=== PATIENT | female | born 1980 | race Caucasian/White ===

== ENCOUNTER → 2016-08-17 | Outpatient (CLI) | payer MEDICAID ==
[2016-08-17 11:30] LABS: CHLORIDE,CL 107 mmol/L (98-110); SODIUM,NA 138 mmol/L (136-146)
== END ==
LOC: MW.CHFP 10:41
PROVIDERS: ATTEND Student in an Organized Health Care Education/Training Program
DX: R19.7 Diarrhea, unspecified (principal); R11.10 Vomiting, unspecified; R10.9 Unspecified abdominal pain; K30 Functional dyspepsia
CPT/HCPCS: 36415; 80048; 85025

== ENCOUNTER → 2016-08-18 | Outpatient (CLI) | payer MEDICAID | LOC: MW.CHFP 11:20 | PROVIDERS: ATTEND Student in an Organized Health Care Education/Training Program | DX: K30 Functional dyspepsia (principal); R10.9 Unspecified abdominal pain; R19.7 Diarrhea, unspecified | CPT/HCPCS: 83630; 87046; 87324; 87899 ==

== ENCOUNTER → 2016-08-25 | Outpatient (CLI) | payer MEDICAID ==
--- NOTE | 2016-08-25 14:00 | NM ---
EXAMINATION: Nuclear medicine hepatobiliary study (HIDA) with cholecystokinin (calculation of gallbl adder ejection fraction for function). HISTORY: Diarrhea, pain. PROCEDURE: Following intravenous administration of 3.8 mCi of technetium 99m Choletec, dynamic images were ob tained up to one-hour post injection. This is followed by slow intravenous administration of 1.3 mcg of CCK and additional dynamic images were obtained. Gallbladder ejection fraction is calculated. FINDINGS: The initial dynamic images demonstrates clearance of the tracer from the blood pool with the prompt tracer uptake by the liver. By 15 minutes tracer activity is noted in the gallbladder. The post CCK images demonstrates optimal contraction of the gallbladder with ejection fraction of 44 percent (nor mal is equal or more than 35%). Tracer activity is noted in the small intestine following CCK admini stration. IMPRESSION: 1. Patent cystic and common bile ducts. Normal liver function. 2. Normal gallbladder ejection fraction following CCK administration ( 44 %; normal equal or more t yuan 35%).
--- NOTE | 2016-08-25 15:41 | US ---
EXAMINATION: Right upper quadrant ultrasound HISTORY: Pain COMPARISON: CT dated 03/04/2015 TECHNIQUE: Grayscale and color Doppler images obtained of the right upper quadrant FINDINGS: The visualized pancreas appears normal. The liver appears normal in contour and echogenici ty without a focal hepatic mass. The gallbladder wall thickness is normal. No pericholecystic fluid or shadowing gallstones. The common bile duct measures 3 mm. The right kidney measures 10.1 cm pole- to-pole without evidence of hydronephrosis. The sonographic Mccall sign is negative. IMPRESSION: Unremarkable right upper quadrant ultrasound.
== END ==
LOC: MW.US 11:17
PROVIDERS: ATTEND Student in an Organized Health Care Education/Training Program
DX: R10.9 Unspecified abdominal pain (principal); R19.7 Diarrhea, unspecified; K90.49 Malabsorption due to intolerance, not elsewhere classified
CPT/HCPCS: 76705; 78227; A9500; J2805

== ENCOUNTER 2016-09-21 12:52 | Emergency (ER) | payer MEDICAID ==
[2016-09-21] MEDS ORDERED: Sodium Chloride 0.9% 1,000 ML IV ONE (13:19)
--- NOTE | 2016-09-21 13:32 | EDM.PDOC ---
ED HPI GENERAL MEDICAL PROBLEM - General Chief Complaint: Drug or Alcohol Abuse Stated Complaint: ALCOHOL ISSUES Time Seen by Provider: 09/21/16 13:24 Source of Information: Reports: Patient, Family History Limitations: Reports: No Limitations - History of Present Illness INITIAL COMMENTS - FREE TEXT/NARRATIVE: History of present illness: [36-year-old female coming in stating she needs inpatient alcohol rehabilitation. Patient indicates she has been doing outpatient and that is not meeting her needs of support to maintain a sober state. Patient is quite distraught, crying loudly and shouting repeatedly that she wants everybody to treat her poorly that she is not worthy of care or concern.] Review of systems: As per history of present illness and below otherwise all systems reviewed and negative. Past medical history: As per history of present illness and as reviewed below otherwise noncontributory. Surgical history: As per history of present illness and as reviewed below otherwise noncontributory. Social history: No reported history of drug or alcohol abuse. Family history: As per history of present illness and as reviewed below otherwise noncontributory. Physical exam: HEENT: Atraumatic, normocephalic, pupils reactive, negative for conjunctival pallor or scleral icterus, mucous membranes moist, throat clear, neck supple, nontender, trachea midline. Lungs: Clear to auscultation, breath sounds equal bilaterally, chest nontender. Heart: S1S2, regular, negative for clicks, rubs, or JVD. Abdomen: Soft, nondistended, nontender. Negative for masses or hepatosplenomegaly. Negative for costovertebral tenderness. Pelvis: Stable nontender. Genitourinary: Deferred. Rectal: Deferred. Extremities: Atraumatic, negative for cords or calf pain. Neurovascular unremarkable. Neuro: Awake, alert, oriented. Cranial nerves II through XII unremarkable. Cerebellum unremarkable. Motor and sensory unremarkable throughout. Exam nonfocal. Global assessment is benign save for obvious intoxication and emotional lability during examining and interview. Diagnostics: [CBC, CMP, UA, urine hCG, EtOH] Therapeutics: [] Impression: [Intoxicated desiring inpatient rehabilitation] Plan: [Transfer to [facility]] Definitive disposition and diagnosis as appropriate pending reevaluation and review of above. - Related Data Allergies Allergy/AdvReac Type Severity Reaction Status Date / Time No Known Allergies Allergy Verified 09/21/16 13:01 Home Meds: Home Meds Escitalopram [Lexapro] 20 mg PO DAILY 11/05/13 [History] Levonorgestrel [Mirena] 09/29/15 [History] Pantoprazole Sodium [Protonix] 1 tab PO DAILY 09/29/15 [History] Acetaminophen [Tylenol] 650 mg PO Q4H PRN 10/02/15 [History] Past Medical History - Past Health History Medical/Surgical History: Denies Medical/Surgical History HEENT History: Reports: None Other HEENT History: wears glasses/contacts Cardiovascular History: Reports: None Respiratory History: Reports: None Gastrointestinal History: Reports: Other (See Below) Other Gastrointestinal History: occasional heartburn Genitourinary History: Reports: None 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 Musculoskeletal History: Reports: None Neurological History: Reports: None Other Neuro History: states has motion sickness Psychiatric History: Reports: Anxiety, Depression Endocrine/Metabolic History: Reports: None Hematologic History: Reports: None Immunologic History: Reports: None Oncologic (Cancer) History: Reports: None Dermatologic History: Reports: None - Infectious Disease History Infectious Disease History: Reports: None - Past Surgical History Head Surgeries/Procedures: Reports: None Cardiovascular Surgical History: Reports: None Respiratory Surgical History: Reports: None Female Surgical History: Reports: None Endocrine Surgical History: Reports: None Musculoskeletal Surgical History: Reports: None Oncologic Surgical History: Reports: None Dermatological Surgical History: Reports: None Social & Family History - Family History Family Medical History: Noncontributory - Tobacco Use Smoking Status *Q: Current Every Day Smoker Years of Tobacco use: 20 Packs/Tins Daily: 1 Used Tobacco, but Quit: No Second Hand Smoke Exposure: No - Alcohol Use Days Per Week of Alcohol Use: 7 Number of Drinks Per Day: 10 Total Drinks Per Week: 70 - Recreational Drug Use Recreational Drug Use: Yes Drug Use in Last 12 Months: Yes Recreational Drug Type: Reports: Marijuana/Hashish, Methamphetamine ED ROS GENERAL - Review of Systems Review Of Systems: See Below (See history of present illness) ED EXAM, GENERAL - Physical Exam Exam: See Below (History of present illness) Course - Vital Signs Last Recorded V/S: Last Vital Signs Temp 36.6 C 09/21/16 13:01 Pulse 105 H 09/21/16 13:01 Resp 18 09/21/16 13:01 BP 138/77 05/31/17 13:01 Pulse Ox 97 09/21/16 13:01 - Orders/Labs/Meds Labs: Laboratory Tests 09/21/16 09/21/16 09/21/16 Range/Units 13:37 13:37 13:37 WBC 9.54 (4.0-11.0) K/uL RBC 4.80 (4.30-5.90) M/uL Hgb 15.5 (12.0-16.0) g/dL Hct 44.7 (36.0-46.0) % MCV 93.1 (80.0-98.0) fL MCH 32.3 H (27.0-32.0) pg MCHC 34.7 (31.0-37.0) g/dL RDW Std Deviation 43.0 (28.0-62.0) fl RDW Coeff of Renuka 13 (11.0-15.0) % Plt Count 288 (150-400) K/uL MPV 10.60 (7.40-12.00) fL Neut % (Auto) 38.8 L (48.0-80.0) % Lymph % (Auto) 50.6 H (16.0-40.0) % Winn % (Auto) 6.4 (0.0-15.0) % Eos % (Auto) 3.7 (0.0-7.0) % Baso % (Auto) 0.5 (0.0-1.5) % Neut # (Auto) 3.7 (1.4-5.7) K/uL Lymph # (Auto) 4.8 H (0.6-2.4) K/uL Winn # (Auto) 0.6 (0.0-0.8) K/uL Eos # (Auto) 0.4 (0.0-0.7) K/uL Baso # (Auto) 0.1 (0.0-0.1) K/uL Nucleated RBC % 0.0 /100WBC Nucleated RBCs # 0 K/uL Sodium 139 (136-146) mmol/L Potassium 4.0 (3.5-5.1) mmol/L Chloride 108 (98-110) mmol/L Carbon Dioxide 19 L (21-31) mmol/L BUN 13 (6.0-23.0) mg/dL Creatinine 0.7 (0.6-1.5) mg/dL Est Cr Clr Drug Dosing 81.34 mL/min Estimated GFR (MDRD) > 60.0 ml/min Glucose 111 H (60-110) mg/dL Calcium 8.7 L (8.8-10.8) mg/dL Total Bilirubin 0.2 (0.1-1.5) mg/dL AST 28 (5-40) IU/L ALT 40 (8-54) IU/L Alkaline Phosphatase 103 (40-150) Total Protein 7.8 (6.0-8.0) g/dL Albumin 4.5 (3.5-5.0) g/dL Globulin 3.3 (2.0-3.5) g/dL Albumin/Globulin Ratio 1.4 (1.3-2.8) HCG, Quant < 1.2 mIU/mL Urine Color Urine Appearance Urine pH (5.0-8.0) Ur Specific [place] (1.001-1.035) Urine Protein (NEGATIVE) mg/dL Urine Glucose (UA) (NEGATIVE) mg/dL Urine Ketones (NEGATIVE) mg/dL Urine Occult Blood (NEGATIVE) Urine Nitrite (NEGATIVE) Urine Bilirubin (NEGATIVE) Urine Urobilinogen (<2.0) EU/dL Ur Leukocyte Esterase (NEGATIVE) Urine RBC (0-2/HPF) Urine WBC (0-5/HPF) Ur Epithelial Cells (NONE-FEW) Urine Bacteria (NEGATIVE) Ethyl Alcohol 199.3 mg/dL 09/21/16 Range/Units 14:12 WBC (4.0-11.0) K/uL RBC (4.30-5.90) M/uL Hgb (12.0-16.0) g/dL Hct (36.0-46.0) % MCV (80.0-98.0) fL MCH (27.0-32.0) pg MCHC (31.0-37.0) g/dL RDW Std Deviation (28.0-62.0) fl RDW Coeff of Renuka (11.0-15.0) % Plt Count (150-400) K/uL MPV (7.40-12.00) fL Neut % (Auto) (48.0-80.0) % Lymph % (Auto) (16.0-40.0) % Winn % (Auto) (0.0-15.0) % Eos % (Auto) (0.0-7.0) % Baso % (Auto) (0.0-1.5) % Neut # (Auto) (1.4-5.7) K/uL Lymph # (Auto) (0.6-2.4) K/uL Winn # (Auto) (0.0-0.8) K/uL Eos # (Auto) (0.0-0.7) K/uL Baso # (Auto) (0.0-0.1) K/uL Nucleated RBC % /100WBC Nucleated RBCs # K/uL Sodium (136-146) mmol/L Potassium (3.5-5.1) mmol/L Chloride (98-110) mmol/L Carbon Dioxide (21-31) mmol/L BUN (6.0-23.0) mg/dL Creatinine (0.6-1.5) mg/dL Est Cr Clr Drug Dosing mL/min Estimated GFR (MDRD) ml/min Glucose (60-110) mg/dL Calcium (8.8-10.8) mg/dL Total Bilirubin (0.1-1.5) mg/dL AST (5-40) IU/L ALT (8-54) IU/L Alkaline Phosphatase (40-150) Total Protein (6.0-8.0) g/dL Albumin (3.5-5.0) g/dL Globulin (2.0-3.5) g/dL Albumin/Globulin Ratio (1.3-2.8) HCG, Quant mIU/mL Urine Color YELLOW Urine Appearance CLEAR Urine pH 6.0 (5.0-8.0) Ur Specific [place] <= 1.005 (1.001-1.035) Urine Protein NEGATIVE (NEGATIVE) mg/dL Urine Glucose (UA) NEGATIVE (NEGATIVE) mg/dL Urine Ketones NEGATIVE (NEGATIVE) mg/dL Urine Occult Blood TRACE-INTACT (NEGATIVE) Urine Nitrite NEGATIVE (NEGATIVE) Urine Bilirubin NEGATIVE (NEGATIVE) Urine Urobilinogen 0.2 (<2.0) EU/dL Ur Leukocyte Esterase NEGATIVE (NEGATIVE) Urine RBC 0-2 (0-2/HPF) Urine WBC 0-1 (0-5/HPF) Ur Epithelial Cells FEW (NONE-FEW) Urine Bacteria FEW (NEGATIVE) Ethyl Alcohol mg/dL Meds: Medications Discontinued Medications Generic Name Dose Route Start Last Admin Trade Name Freq PRN Reason Stop Dose Admin Sodium Chloride 1,000 mls @ 999 mls/hr 09/21/16 13:19 09/21/16 13:38 Normal Saline IV 09/21/16 14:19 999 mls/hr STAT ONE Administration Departure - Departure Time of Disposition: 14:32 Disposition: DC/Tfer to Inpt Rehab Fac 62 Condition: good Clinical Impression: Alcohol abuse - Discharge Information Forms: ED Department Discharge
[2016-09-21 14:04] LABS: CHLORIDE,CL 108 mmol/L (98-110); SODIUM,NA 139 mmol/L (136-146)
[2016-09-21 16:11] VITALS: BP 101/58
== END 2016-09-21 16:13 ==
LOC: MW.ED 12:52
DX: F10.10 Alcohol abuse, uncomplicated (principal); F41.9 Anxiety disorder, unspecified; F32.9 Major depressive disorder, single episode, unspecified; F17.210 Nicotine dependence, cigarettes, uncomplicated; Z79.899 Other long term (current) drug therapy; Y90.6 Blood alcohol level of 120-199 mg/100 ml
CPT/HCPCS: 36415; 80053; 81001; 84702; 85025; 96360; 99285; G0480; J7040

== ENCOUNTER 2018-01-21 14:32 | Inpatient (IN) | payer MEDICAID ==
[2018-01-21] MEDS ORDERED: Sodium Chloride 0.9% 1,000 ML IV ONE (16:18)
[2018-01-21] MEDS ORDERED: Ketorolac 30 MG/ML SDV IVPUSH ONE (16:18)
[2018-01-21] MEDS ORDERED: Azithromycin 250 MG Tab PO STA (17:18)
[2018-01-21] MEDS ORDERED: cefTRIAXone 250 MG in Lidocaine 1% 1 ML IM ONE (17:18)
[2018-01-21 17:50] LABS: CHLORIDE,CL 103 mmol/L (98-107); SODIUM,NA 135 mmol/L (136-145)
--- NOTE | 2018-01-21 18:07 | EDM.PDOC ---
ED HPI GENERAL MEDICAL PROBLEM - General Chief Complaint: General Stated Complaint: PAIN ALL OVER BODY Time Seen by Provider: 01/21/18 18:05 Source of Information: Reports: Patient - History of Present Illness INITIAL COMMENTS - FREE TEXT/NARRATIVE: HISTORY AND PHYSICAL: History of present illness: []Patient presents with abdominal pain She has history of constipation over the last week to using [id number] laxatives she's had a bowel movement every day including today getting them He also has a partner that was diagnosed and confirmed to have gonorrhea Her main complaint today is that of lower quadrant pain Complains of general malaise no fever chills sweats no chest pain shortness breath headache dizziness palpitation no urine symptoms Review of systems: As per history of present illness and below otherwise all systems reviewed and negative. Past medical history: As per history of present illness and as reviewed below otherwise noncontributory. Surgical history: As per history of present illness and as reviewed below otherwise noncontributory. Social history: No reported history of drug or alcohol abuse. Family history: As per history of present illness and as reviewed below otherwise noncontributory. Physical exam: HEENT: Atraumatic, normocephalic, pupils reactive, negative for conjunctival pallor or scleral icterus, mucous membranes moist, throat clear, neck supple, nontender, trachea midline. Lungs: Clear to auscultation, breath sounds equal bilaterally, chest nontender. Heart: S1S2, regular, negative for clicks, rubs, or JVD. Abdomen: Soft, nondistended, nontender on the right than the left she is tender in the lower quadrant. Negative for masses or hepatosplenomegaly. Negative for costovertebral tenderness. Pelvis: Stable nontender. Genitourinary: Deferred. Rectal: Deferred. Extremities: Atraumatic, negative for cords or calf pain. Neurovascular unremarkable. Neuro: Awake, alert, oriented. Cranial nerves II through XII unremarkable. Cerebellum unremarkable. Motor and sensory unremarkable throughout. Exam nonfocal. Diagnostics: []TBC CMP UA lipase GC Chlamydia flat and upright abdomen CT abdomen is contrast Therapeutics: [] gram azithromycin by mouth now Rocephin 250 mg IM Cipro 500 mg by mouth twice a day #20 no refill Impression: []dominant pain Gonorrhea exposure constipation resolved Definitive disposition and diagnosis as appropriate pending reevaluation and review of above. Lower Abdominal Pain Score (Numeric/FACES): 8 - Related Data Allergies Allergy/AdvReac Type Severity Reaction Status Date / Time No Known Allergies Allergy Verified 01/21/18 15:57 Home Meds: Home Meds Escitalopram [Lexapro] 20 mg PO DAILY 11/05/13 [History] Levonorgestrel [Mirena] 1 device VAG ONETIME 09/29/15 [History] Acetaminophen [Tylenol] 650 mg PO Q4H PRN 10/02/15 [History] ARIPiprazole [Abilify] 1 tab PO DAILY 01/21/18 [History] Naltrexone Microspheres [Vivitrol] 1 cap PO DAILY 01/21/18 [History] clonazePAM [Klonopin] 1 tab PO ASDIRECTED PRN 01/21/18 [History] Past Medical History - Past Health History Medical/Surgical History: Denies Medical/Surgical History HEENT History: Reports: None Other HEENT History: wears glasses/contacts Cardiovascular History: Reports: None Respiratory History: Reports: None Gastrointestinal History: Reports: Other (See Below) Other Gastrointestinal History: occasional heartburn Genitourinary History: Reports: None 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 Musculoskeletal History: Reports: None Neurological History: Reports: None Other Neuro History: states has motion sickness Psychiatric History: Reports: Addiction, Anxiety, Depression Endocrine/Metabolic History: Reports: None Hematologic History: Reports: None Immunologic History: Reports: None Oncologic (Cancer) History: Reports: None Dermatologic History: Reports: None - Infectious Disease History Infectious Disease History: Reports: Chicken Pox - Past Surgical History Head Surgeries/Procedures: Reports: None Cardiovascular Surgical History: Reports: None Respiratory Surgical History: Reports: None Female Surgical History: Reports: None Endocrine Surgical History: Reports: None Musculoskeletal Surgical History: Reports: None Oncologic Surgical History: Reports: None Dermatological Surgical History: Reports: None Social & Family History - Family History Family Medical History: Noncontributory - Tobacco Use Smoking Status *Q: Current Every Day Smoker Years of Tobacco use: 15 Packs/Tins Daily: 0.5 - Caffeine Use Caffeine Use: Reports: Coffee - Recreational Drug Use Recreational Drug Use: Yes Recreational Drug Type: Reports: Marijuana/Hashish Other Recreational Drug Type: uses marijuana for pain control sometimes; denies daily use ED ROS GENERAL - Review of Systems Review Of Systems: See Below ED EXAM, GENERAL - Physical Exam Exam: See Below Course - Vital Signs Last Recorded V/S: Last Vital Signs Temp 98.0 F 01/21/18 15:55 Pulse 96 01/21/18 18:25 Resp 18 01/21/18 15:55 BP 134/72 01/21/18 18:25 Pulse Ox 100 01/21/18 18:25 - Orders/Labs/Meds Orders: Active Orders 24 hr Category Date Time Status Abdomen 2V AP Flat Upright [CR] Stat Exams 01/21/18 17:24 Taken Abdomen Pelvis w Cont [CT] Stat Exams 01/21/18 18:04 Ordered CHLAMYDIA AND GONORRHEA BY TMA Stat Lab 01/21/18 16:35 Received CULTURE URINE [RM] Stat Lab 01/21/18 16:35 Received Labs: Laboratory Tests 01/21/18 01/21/18 01/21/18 Range/Units 16:35 16:35 17:06 WBC 14.70 H (4.0-11.0) K/uL RBC 4.32 (4.30-5.90) M/uL Hgb 13.3 (12.0-16.0) g/dL Hct 38.6 (36.0-46.0) % MCV 89.4 (80.0-98.0) fL MCH 30.8 (27.0-32.0) pg MCHC 34.5 (31.0-37.0) g/dL RDW Std Deviation 40.3 (28.0-62.0) fl RDW Coeff of Renuka 12 (11.0-15.0) % Plt Count 349 (150-400) K/uL MPV 9.70 (7.40-12.00) fL Neut % (Auto) 71.4 (48.0-80.0) % Lymph % (Auto) 19.9 (16.0-40.0) % [place] % (Auto) 6.6 (0.0-15.0) % Eos % (Auto) 1.9 (0.0-7.0) % Baso % (Auto) 0.2 (0.0-1.5) % Neut # (Auto) 10.5 H (1.4-5.7) K/uL Lymph # (Auto) 2.9 H (0.6-2.4) K/uL [place] # (Auto) 1.0 H (0.0-0.8) K/uL Eos # (Auto) 0.3 (0.0-0.7) K/uL Baso # (Auto) 0.0 (0.0-0.1) K/uL Nucleated RBC % 0.0 /100WBC Nucleated RBCs # 0 K/uL Sodium (136-145) mmol/L Potassium (3.5-5.1) mmol/L Chloride (98-107) mmol/L Carbon Dioxide (21.0-32.0) mmol/L BUN (7.0-18.0) mg/dL Creatinine (0.6-1.0) mg/dL Est Cr Clr Drug Dosing mL/min Estimated GFR (MDRD) ml/min Glucose (74-106) mg/dL Calcium (8.5-10.1) mg/dL Total Bilirubin (0.2-1.0) mg/dL AST (15-37) IU/L ALT (14-63) IU/L Alkaline Phosphatase (46-116) U/L Total Protein (6.4-8.2) g/dL Albumin (3.4-5.0) g/dL Globulin (2.0-3.5) g/dL Albumin/Globulin Ratio (1.3-2.8) Lipase (73-393) U/L Urine Color YELLOW Urine Appearance CLOUDY Urine pH 7.5 (5.0-8.0) Ur Specific [place] 1.020 (1.001-1.035) Urine Protein NEGATIVE (NEGATIVE) mg/dL Urine Glucose (UA) NEGATIVE (NEGATIVE) mg/dL Urine Ketones NEGATIVE (NEGATIVE) mg/dL Urine Occult Blood SMALL H (NEGATIVE) Urine Nitrite NEGATIVE (NEGATIVE) Urine Bilirubin NEGATIVE (NEGATIVE) Urine Urobilinogen 0.2 (<2.0) EU/dL Ur Leukocyte Esterase SMALL (NEGATIVE) Urine RBC 0-2 (0-2/HPF) Urine WBC 8-12 (0-5/HPF) Ur Epithelial Cells FEW (NONE-FEW) Amorphous Sediment LIGHT (NEGATIVE) Urine Bacteria FEW (NEGATIVE) Urine Mucus LIGHT (NONE-MOD) Urine HCG, Qual NEGATIVE (NEGATIVE) 01/21/18 Range/Units 17:06 WBC (4.0-11.0) K/uL RBC (4.30-5.90) M/uL Hgb (12.0-16.0) g/dL Hct (36.0-46.0) % MCV (80.0-98.0) fL MCH (27.0-32.0) pg MCHC (31.0-37.0) g/dL RDW Std Deviation (28.0-62.0) fl RDW Coeff of Renuka (11.0-15.0) % Plt Count (150-400) K/uL MPV (7.40-12.00) fL Neut % (Auto) (48.0-80.0) % Lymph % (Auto) (16.0-40.0) % [place] % (Auto) (0.0-15.0) % Eos % (Auto) (0.0-7.0) % Baso % (Auto) (0.0-1.5) % Neut # (Auto) (1.4-5.7) K/uL Lymph # (Auto) (0.6-2.4) K/uL [place] # (Auto) (0.0-0.8) K/uL Eos # (Auto) (0.0-0.7) K/uL Baso # (Auto) (0.0-0.1) K/uL Nucleated RBC % /100WBC Nucleated RBCs # K/uL Sodium 135 L (136-145) mmol/L Potassium 3.6 (3.5-5.1) mmol/L Chloride 103 (98-107) mmol/L Carbon Dioxide 25.3 (21.0-32.0) mmol/L BUN 16 (7.0-18.0) mg/dL Creatinine 0.7 (0.6-1.0) mg/dL Est Cr Clr Drug Dosing 84.65 mL/min Estimated GFR (MDRD) > 60.0 ml/min Glucose 94 (74-106) mg/dL Calcium 9.0 (8.5-10.1) mg/dL Total Bilirubin 0.3 (0.2-1.0) mg/dL AST 6 L (15-37) IU/L ALT 26 (14-63) IU/L Alkaline Phosphatase 116 (46-116) U/L Total Protein 6.8 (6.4-8.2) g/dL Albumin 3.1 L (3.4-5.0) g/dL Globulin 3.7 H (2.0-3.5) g/dL Albumin/Globulin Ratio 0.8 L (1.3-2.8) Lipase 204 (73-393) U/L Urine Color Urine Appearance Urine pH (5.0-8.0) Ur Specific [place] (1.001-1.035) Urine Protein (NEGATIVE) mg/dL Urine Glucose (UA) (NEGATIVE) mg/dL Urine Ketones (NEGATIVE) mg/dL Urine Occult Blood (NEGATIVE) Urine Nitrite (NEGATIVE) Urine Bilirubin (NEGATIVE) Urine Urobilinogen (<2.0) EU/dL Ur Leukocyte Esterase (NEGATIVE) Urine RBC (0-2/HPF) Urine WBC (0-5/HPF) Ur Epithelial Cells (NONE-FEW) Amorphous Sediment (NEGATIVE) Urine Bacteria (NEGATIVE) Urine Mucus (NONE-MOD) Urine HCG, Qual (NEGATIVE) Meds: Medications Discontinued Medications Generic Name Dose Route Start Last Admin Trade Name Freq PRN Reason Stop Dose Admin Azithromycin 1,000 mg 01/21/18 17:18 01/21/18 17:33 Zithromax PO 01/21/18 17:19 1,000 mg NOW STA Administration Sodium Chloride 1,000 mls @ 999 mls/hr 01/21/18 16:18 01/21/18 16:47 Normal Saline IV 01/21/18 17:18 999 mls/hr STAT ONE Administration Ceftriaxone Sodium 250 mg/ 1 mls @ 1 mls/sec 01/21/18 17:18 01/21/18 17:32 Lidocaine HCl IM 01/21/18 17:19 1 mls/sec ONETIME ONE Administration Ketorolac Tromethamine 30 mg 01/21/18 16:18 01/21/18 16:47 Toradol IVPUSH 01/21/18 16:19 30 mg ONETIME ONE Administration Departure - Departure Time of Disposition: 18:45 Disposition: Home, Self-Care 01 Condition: Good Clinical Impression: Abdominal pain Qualifiers: Abdominal location: generalized Qualified Code(s): R10.84 - Generalized abdominal pain - Discharge Information Referrals: Laura Arredondo NP [Primary Care Provider] - Forms: ED Department Discharge Additional Instructions: Medication as prescribed Return if symptoms persist or worsen Follow-up with primary care in 2 weeks sooner as needed [facility] - Primary Care [address] [place] [id number] The following information is given to patients seen in the emergency department who are being discharged to home. This information is to outline your options for follow-up care. We provide all patients seen in our emergency department with a follow-up referral. The need for follow-up, as well as the timing and circumstances, are variable depending upon the specifics of your emergency department visit. If you don't have a primary care physician on staff, we will provide you with a referral. We always advise you to contact your personal physician following an emergency department visit to inform them of the circumstance of the visit and for follow-up with them and/or the need for any referrals to a consulting specialist. The emergency department will also refer you to a specialist when appropriate. This referral assures that you have the opportunity for follow-up care with a specialist. All of these measure are taken in an effort to provide you with optimal care, which includes your follow-up. Under all circumstances we always encourage you to contact your private physician who remains a resource for coordinating your care. When calling for follow-up care, please make the office aware that this follow-up is from your recent emergency room visit. If for any reason you are refused follow-up, please contact the [facility] emergency department at and asked to speak to the emergency department charge nurse. - My Orders Last 24 Hours: My Active Orders 01/21/18 16:35 CHLAMYDIA AND GONORRHEA BY TMA Stat CULTURE URINE [RM] Stat 01/21/18 17:24 Abdomen 2V AP Flat Upright [CR] Stat 01/21/18 18:04 Abdomen Pelvis w Cont [CT] Stat - Assessment/Plan Last 24 Hours: My Active Orders 01/21/18 16:35 CHLAMYDIA AND GONORRHEA BY TMA Stat CULTURE URINE [RM] Stat 01/21/18 17:24 Abdomen 2V AP Flat Upright [CR] Stat 01/21/18 18:04 Abdomen Pelvis w Cont [CT] Stat
[2018-01-21] MEDS ORDERED: Iopamidol 755 MG/ML 200 ML Multipack Bottle IVPUSH ONE (18:49)
[2018-01-21] MEDS ORDERED: cefTRIAXone 1 GM in Premix Bag 1 BAG IV ONE (20:53)
[2018-01-21] MEDS ORDERED: Doxycycline 100 MG Cap ONE (22:34)
[2018-01-21] MEDS: Doxycycline 100 MG Cap PO SCH (22:41)
[2018-01-21] MEDS: cefOXitin 2 GM in Premix Bag 1 BAG IV SCH (22:41)
--- NOTE | 2018-01-21 23:21 | PCM.HP ---
H&P History of Present Illness - General Date of Service: 01/21/18 Source of Information: Patient History Limitations: Reports: No Limitations - History of Present Illness Initial Comments - Free Text/Narative: 37 yo P2 lady presented to the ER with left lower sided abdominal pain associated with nausea but no vomiting. The pain started 5 days ago had has slowed increased in intensity radiating to her mid abdominal region, back and left leg. Denies urinary symptoms. Denies fever or chills. She smoked some THC today to help with the pain and admits to using some Methamphetamine. Patient's boyfriend was diagnosed with Gonorrhoea last week- she has not been treated, she reports that she awaiting results of STD screen that was performed at the health unit last week. She denies abnormal vaginal discharge but reports that her vaginal discharge smells "funny". She has an Mirena IUD insitu- placed by Dr De Souza in November CT scan and Pelvic sonogram showed 2.6 cm dilated left fallopian tube with complex fluid, free fluid in the cul de sac- findings consistent with Tubo- ovarian abscess. She was treated for Trichomonas 4 years ago and Chlamydia when she was 20 years of age Location: Reports: Abdomen Quality: Reports: Sharp Improves with: Reports: Medication Lower Abdominal Pain Score (Numeric/FACES): 8 - Related Data Allergies/Adverse Reactions: Allergies Allergy/AdvReac Type Severity Reaction Status Date / Time No Known Allergies Allergy Verified 01/21/18 15:57 Home Medications: Home Meds Escitalopram [Lexapro] 20 mg PO DAILY 11/05/13 [History] Levonorgestrel [Mirena] 1 device VAG ONETIME 09/29/15 [History] Acetaminophen [Tylenol] 650 mg PO Q4H PRN 10/02/15 [History] ARIPiprazole [Abilify] 1 tab PO DAILY 01/21/18 [History] Naltrexone Microspheres [Vivitrol] 1 cap PO DAILY 01/21/18 [History] clonazePAM [Klonopin] 1 tab PO ASDIRECTED PRN 01/21/18 [History] Past Medical History - Past Health History Medical/Surgical History: Denies Medical/Surgical History HEENT History: Reports: None Other HEENT History: wears glasses/contacts Cardiovascular History: Reports: None Respiratory History: Reports: None Gastrointestinal History: Reports: Other (See Below) Other Gastrointestinal History: occasional heartburn Genitourinary History: Reports: None [employer] History: Reports: None, Other (See Below) (Chlamydia at age 20 Trichomonas 4 years ago) : 2 Para: 2 LMP (Approximate): 1 Week Musculoskeletal History: Reports: None Neurological History: Reports: None Other Neuro History: states has motion sickness Psychiatric History: Reports: Addiction (Met and alcohol), Anxiety, Depression Endocrine/Metabolic History: Reports: None Hematologic History: Reports: None Immunologic History: Reports: None Oncologic (Cancer) History: Reports: None Dermatologic History: Reports: None - Infectious Disease History Infectious Disease History: Reports: Chicken Pox - Past Surgical History Head Surgeries/Procedures: Reports: None Cardiovascular Surgical History: Reports: None Respiratory Surgical History: Reports: None Female Surgical History: Reports: None Endocrine Surgical History: Reports: None Musculoskeletal Surgical History: Reports: None Oncologic Surgical History: Reports: None Dermatological Surgical History: Reports: None Social & Family History - Family History Family Medical History: Noncontributory - Tobacco Use Smoking Status *Q: Current Every Day Smoker Years of Tobacco use: 15 Packs/Tins Daily: 0.5 - Caffeine Use Caffeine Use: Reports: Coffee - Recreational Drug Use Recreational Drug Use: Yes Recreational Drug Type: Reports: Marijuana/Hashish Other Recreational Drug Type: uses marijuana for pain control sometimes; denies daily use H&P Review of Systems - Review of Systems: Review Of Systems: ROS reveals no pertinent complaints other than HPI. Exam - Exam Exam: See Below - Vital Signs Vital Signs: Last Vital Signs Temp 36.7 C 01/21/18 15:55 Pulse 96 01/21/18 18:25 Resp 18 01/21/18 15:55 BP 134/72 01/21/18 18:25 Pulse Ox 100 01/21/18 18:25 Weight: 150 lb - Exam General: Alert, Oriented Lungs: Clear to Auscultation, Normal Respiratory Effort Cardiovascular: Regular Rate, Regular Rhythm GI/Abdominal Exam: Tender (Left lower qudarant and suprapubic. Voluntary Guarding but no rebound tenderness) (Female) Exam: Adnexal Mass (Left adnexal with tenderness), Adnexal Tenderness, Cervical Discharge (mucopruluent- small), Cervix Motion Tenderness, Other (IUD string visualized) Rectal (Female) Exam: Normal Exam Extremities: No Pedal Edema Skin: Warm Psychiatric: Alert, Normal Affect, Normal Mood - Patient Data Lab Results Last 24 hrs: Laboratory Results - last 24 hr 01/21/18 01/21/18 01/21/18 Range/Units 16:35 16:35 17:06 WBC 14.70 H (4.0-11.0) K/uL RBC 4.32 (4.30-5.90) M/uL Hgb 13.3 (12.0-16.0) g/dL Hct 38.6 (36.0-46.0) % MCV 89.4 (80.0-98.0) fL MCH 30.8 (27.0-32.0) pg MCHC 34.5 (31.0-37.0) g/dL RDW Std Deviation 40.3 (28.0-62.0) fl RDW Coeff of Renuka 12 (11.0-15.0) % Plt Count 349 (150-400) K/uL MPV 9.70 (7.40-12.00) fL Neut % (Auto) 71.4 (48.0-80.0) % Lymph % (Auto) 19.9 (16.0-40.0) % [place] % (Auto) 6.6 (0.0-15.0) % Eos % (Auto) 1.9 (0.0-7.0) % Baso % (Auto) 0.2 (0.0-1.5) % Neut # (Auto) 10.5 H (1.4-5.7) K/uL Lymph # (Auto) 2.9 H (0.6-2.4) K/uL [place] # (Auto) 1.0 H (0.0-0.8) K/uL Eos # (Auto) 0.3 (0.0-0.7) K/uL Baso # (Auto) 0.0 (0.0-0.1) K/uL Nucleated RBC % 0.0 /100WBC Nucleated RBCs # 0 K/uL Lactate (0.20-2.00) mmol/L Sodium (136-145) mmol/L Potassium (3.5-5.1) mmol/L Chloride (98-107) mmol/L Carbon Dioxide (21.0-32.0) mmol/L BUN (7.0-18.0) mg/dL Creatinine (0.6-1.0) mg/dL Est Cr Clr Drug Dosing mL/min Estimated GFR (MDRD) ml/min Glucose (74-106) mg/dL Calcium (8.5-10.1) mg/dL Total Bilirubin (0.2-1.0) mg/dL AST (15-37) IU/L ALT (14-63) IU/L Alkaline Phosphatase (46-116) U/L Total Protein (6.4-8.2) g/dL Albumin (3.4-5.0) g/dL Globulin (2.0-3.5) g/dL Albumin/Globulin Ratio (1.3-2.8) Lipase (73-393) U/L Urine Color YELLOW Urine Appearance CLOUDY Urine pH 7.5 (5.0-8.0) Ur Specific [place] 1.020 (1.001-1.035) Urine Protein NEGATIVE (NEGATIVE) mg/dL Urine Glucose (UA) NEGATIVE (NEGATIVE) mg/dL Urine Ketones NEGATIVE (NEGATIVE) mg/dL Urine Occult Blood SMALL H (NEGATIVE) Urine Nitrite NEGATIVE (NEGATIVE) Urine Bilirubin NEGATIVE (NEGATIVE) Urine Urobilinogen 0.2 (<2.0) EU/dL Ur Leukocyte Esterase SMALL (NEGATIVE) Urine RBC 0-2 (0-2/HPF) Urine WBC 8-12 (0-5/HPF) Ur Epithelial Cells FEW (NONE-FEW) Amorphous Sediment LIGHT (NEGATIVE) Urine Bacteria FEW (NEGATIVE) Urine Mucus LIGHT (NONE-MOD) Urine HCG, Qual NEGATIVE (NEGATIVE) HIV 1&2 Ag/Ab, 4th Gen (<1.0) 01/21/18 01/21/18 01/21/18 Range/Units 17:06 17:06 21:01 WBC (4.0-11.0) K/uL RBC (4.30-5.90) M/uL Hgb (12.0-16.0) g/dL Hct (36.0-46.0) % MCV (80.0-98.0) fL MCH (27.0-32.0) pg MCHC (31.0-37.0) g/dL RDW Std Deviation (28.0-62.0) fl RDW Coeff of Renuka (11.0-15.0) % Plt Count (150-400) K/uL MPV (7.40-12.00) fL Neut % (Auto) (48.0-80.0) % Lymph % (Auto) (16.0-40.0) % [place] % (Auto) (0.0-15.0) % Eos % (Auto) (0.0-7.0) % Baso % (Auto) (0.0-1.5) % Neut # (Auto) (1.4-5.7) K/uL Lymph # (Auto) (0.6-2.4) K/uL [place] # (Auto) (0.0-0.8) K/uL Eos # (Auto) (0.0-0.7) K/uL Baso # (Auto) (0.0-0.1) K/uL Nucleated RBC % /100WBC Nucleated RBCs # K/uL Lactate 0.5 (0.20-2.00) mmol/L Sodium 135 L (136-145) mmol/L Potassium 3.6 (3.5-5.1) mmol/L Chloride 103 (98-107) mmol/L Carbon Dioxide 25.3 (21.0-32.0) mmol/L BUN 16 (7.0-18.0) mg/dL Creatinine 0.7 (0.6-1.0) mg/dL Est Cr Clr Drug Dosing 84.65 mL/min Estimated GFR (MDRD) > 60.0 ml/min Glucose 94 (74-106) mg/dL Calcium 9.0 (8.5-10.1) mg/dL Total Bilirubin 0.3 (0.2-1.0) mg/dL AST 6 L (15-37) IU/L ALT 26 (14-63) IU/L Alkaline Phosphatase 116 (46-116) U/L Total Protein 6.8 (6.4-8.2) g/dL Albumin 3.1 L (3.4-5.0) g/dL Globulin 3.7 H (2.0-3.5) g/dL Albumin/Globulin Ratio 0.8 L (1.3-2.8) Lipase 204 (73-393) U/L Urine Color Urine Appearance Urine pH (5.0-8.0) Ur Specific [place] (1.001-1.035) Urine Protein (NEGATIVE) mg/dL Urine Glucose (UA) (NEGATIVE) mg/dL Urine Ketones (NEGATIVE) mg/dL Urine Occult Blood (NEGATIVE) Urine Nitrite (NEGATIVE) Urine Bilirubin (NEGATIVE) Urine Urobilinogen (<2.0) EU/dL Ur Leukocyte Esterase (NEGATIVE) Urine RBC (0-2/HPF) Urine WBC (0-5/HPF) Ur Epithelial Cells (NONE-FEW) Amorphous Sediment (NEGATIVE) Urine Bacteria (NEGATIVE) Urine Mucus (NONE-MOD) Urine HCG, Qual (NEGATIVE) HIV 1&2 Ag/Ab, 4th Gen 0.2 (<1.0) Result Diagrams: 01/21/18 17:06 01/21/18 17:06 *Q Meaningful Use (ADM) - VTE Risk Assess *Q Each Risk Factor Represents 1 Point: None Total Score 1 Point Risk Factors: 0 - Problem List (1) PID (acute pelvic inflammatory disease) SNOMED Code(s): 488719774 ICD Code: N73.0 - ACUTE PARAMETRITIS AND PELVIC CELLULITIS Status: Acute Current Visit: Yes (2) Tubo-ovarian abscess SNOMED Code(s): 09633957 ICD Code: N70.93 - SALPINGITIS AND OOPHORITIS, UNSPECIFIED Status: Acute Current Visit: Yes Problem List Initiated/Reviewed/Updated: Yes Orders Last 24hrs: Active Orders 24 hr Category Date Time Status Abdomen 2V AP Flat Upright [CR] Stat Exams 01/21/18 17:24 Taken Abdomen Pelvis w Cont [CT] Stat Exams 01/21/18 18:04 Taken Transvaginal Non OB [US] Stat Exams 01/21/18 20:53 Taken CHLAMYDIA AND GONORRHEA BY TMA Stat Lab 01/21/18 16:35 Received CULTURE BLOOD [BC] Stat Lab 01/21/18 21:01 Received CULTURE BLOOD [BC] Stat Lab 01/21/18 21:11 Received CULTURE URINE [RM] Stat Lab 01/21/18 16:35 Received RPR [REF] Stat Lab 01/21/18 17:06 Received TRICH/MARGUERITE/CAND BY DNA PROBE [MOLEC] Stat Lab 01/21/18 23:00 Received Doxycycline [Vibramycin] Med 01/22/18 09:00 Active 100 mg PO Q12HR cefOXitin [Mefoxin in Dextrose,Iso-Osm 2 GM/50 ML] 2 gm Med 01/21/18 21:45 Active Premix Bag 1 bag IV Q6H Blood Culture x2 Reflex Set [OM.PC] Stat Oth 01/21/18 20:53 Ordered Medication Orders Doxycycline Hyclate (Vibramycin) 100 mg PO Q12HR [facility] Last Admin: 01/21/18 22:41 Dose: 100 mg Cefoxitin Sodium 2 gm/ Premix 50 mls @ 100 mls/hr IV Q6H [facility] Last Admin: 01/21/18 22:41 Dose: 100 mls/hr Assessment/Plan Comment:: 37 yo lady with acute PID? left tubo-ovarian abscess. Patient is stable and afebrile Will admit for IV abx for at least 24- 48hours or as indicated clinically HIV, RPR screen done Genprobe, Affirm swabs collected Patient is Dr De Souza's patient but I was mistakenly called in to see her. I will admit under Dr De Souza's service and I have notified him.
[2018-01-22] MEDS ORDERED: Acetaminophen/oxyCODONE 325-5 MG Tab PO PRN (00:13)
[2018-01-22] MEDS ORDERED: Ondansetron 4 MG/2 ML SDV IVPUSH PRN (00:13)
[2018-01-22] MEDS ORDERED: Sodium Chloride 0.9% 10 ML Syringe FLUSH PRN (00:15)
[2018-01-22] MEDS ORDERED: Sodium Chloride 0.9% 2.5 ML Syringe FLUSH PRN (00:15)
[2018-01-22] MEDS: cefOXitin 2 GM in Premix Bag 1 BAG IV SCH (04:37)
[2018-01-22] MEDS: Doxycycline 100 MG Cap PO SCH ×2 (08:00→21:15)
--- NOTE | 2018-01-22 19:13 | CR ---
EXAM DATE: 01/22/18 PATIENT'S AGE: 37 Patient: LINA LAGOS Facility: [place], [place] Site . Site : 1980 Study: XRay Abdomen [id number]/30/2018 5:44:00 PM Ordering Physician: Alfonso Farris Final Report: INDICATION: Pain. FINDINGS: Portable supine and upright AP views of the abdomen were obtained. There is no free intraperitoneal air. There is a nonobstructive bowel gas pattern. There is an IUD in the pelvis. There is mild scoliosis. IMPRESSION: No plain evidence of bowel obstruction or free intraperitoneal air. Dictated by Colt Montero MD @ 01/21/2018 6:23:20 PM Dictated by: Colt Montero MD @ 01/21/2018 18:23:38 (Electronic Signature) Report Signed by Proxy. MTDD
--- NOTE | 2018-01-22 19:20 | CT ---
EXAM DATE: 01/22/18 PATIENT'S AGE: 37 Patient: LINA LAGOS Facility: [place], [place] Site . Site : 1980 Study: CT Abdomen/Pelvis W CONT [id number]/[id number]/2018 6:44:20 PM Ordering Physician: Alfonso Farris Final Report: INDICATION: Pain. Lower abdominal pain for 1 week that radiates into lower back with nausea and constipation. TECHNIQUE: CT of abdomen pelvis performed after IV injection of 75 mL of Isovue-370. COMPARISON: CT 03/04/2015. FINDINGS: Contracted gallbladder with mild increased enhancement and thickening of the gallbladder wall likely related to it being contracted. IUD within the uterus. Ill-defined nodularity and stranding in the buttocks greater on the right consistent with previous sites of subcutaneous injection. Trace amount of pericardial fluid. Moderate amount of stool in the colon. Moderate amount of acute phlegmonous inflammatory stranding in the left pelvis centered on the left adnexa with tubular and oval shaped ill-defined cystic density in the left adnexa measuring up to 2.6 cm on image 97. There is increased enhancement of the left adnexal tissues with small amounts of fluid and stranding extending into the left pericolic gutter along the descending and sigmoid colon and greater amounts of fluid in the pelvis posteriorly. Soft tissue density in the left pelvis more medially on image 91 which could be the ovary or a fibroid arising from the uterus. The former would be favored. The changes would be consistent with an acute inflammatory process centered on the left adnexa and pelvic inflammatory disease with tubo-ovarian abscess should be a primary consideration. Possibility of these changes being related to noninflammatory lesions in the adnexal would be thought to be much less likely. Wall thickening involving the proximal sigmoid colon with stranding surrounding it but I suspect this is likely secondary. Clinical and laboratory correlation recommended. Cysts or follicles in the right ovary. Remainder negative. IMPRESSION: 1. Left pelvic acute inflammatory process appears to be centered on the adnexa with abnormal enhancing phlegmonous tissue and stranding surrounding tubular and oval-shaped areas of cystic density which could be related to a hydrosalpinx and inflammatory fluid collections including tubo-ovarian abscess. Small amounts of fluid extending superior from this process into the left pericolic gutter and greater amounts of free fluid which is complex extends into the middle lower pelvis posterior laterally. Findings most consistent with pelvic inflammatory disease with left sided tubo-ovarian abscess. Inflammatory stranding about the proximal sigmoid colon with wall thickening is likely secondary to this process. Clinical and laboratory correlation recommended. 2. Contracted gallbladder with its wall being mildly prominent with increased enhancement. 3. The IUD in satisfactory position in the uterus. Other findings as above. Please note that all CT scans at this facility use dose modulation, iterative reconstruction, and/or weight-based dosing when appropriate to reduce radiation dose to as low as reasonably achievable. Dictated by Bernardo Marroquin MD @ Jan 21 2018 7:17PM (Electronic Signature) Report Signed by Proxy. MTDD
--- NOTE | 2018-01-22 19:28 | US ---
EXAM DATE: 01/22/18 PATIENT'S AGE: 37 Patient: LINA LAGOS Facility: [place], [place] Site . Site : 1980 Study: US Pelvis [id number]/30/2018 10:04:38 PM Ordering Physician: Jean Marie Schwartz Final Report: INDICATION: Left pelvic pain TECHNIQUE: Multiple transvaginal sonographic images of the pelvis. COMPARISON: A CT scan from the same date FINDINGS: Uterus: 6.5 x 3.3 x 4.4 cm. Normal echotexture of the myometrium. No masses. Cervical nabothian cysts. Endometrium: 4 mm in thickness. An IUD within the endometrium. Small endometrial fluid adjacent to the IUD. Right ovary: 2.7 x 2.6 x 1.7 cm. No ovarian or adnexal masses. Normal arterial blood flow. Left ovary: 2.4 x 1.6 x 2.3 cm. A 3.4 x 2.8 x 4.2 cm left adnexal mixed echogenicity structure adjacent to the ovary, containing a 2.6 x 1.6 x 2.1 cm irregular cystic component which demonstrates foci of mural nodularity, with increased regional color Doppler flow. Left ovarian Doppler flow demonstrated. Cul-de-sac: Small free fluid. IMPRESSION: A 4.2 cm heterogeneous mixed echogenicity left adnexal lesion containing a cystic component, suggestive of tubo-ovarian abscess, given the findings on the recent CT scan. Correlate clinically and recommend a 6 week followup examination to exclude neoplasm. An IUD within the endometrium. Small endometrial fluid. Dictated by Devin Kellogg MD @ 01/21/2018 10:22:51 PM Dictated by: Devin Kellogg MD @ 01/21/2018 22:22:57 (Electronic Signature) Report Signed by Proxy. DORINDA
[2018-01-23 08:41] VITALS: BP 120/73
[2018-01-23] MEDS: Doxycycline 100 MG Cap PO SCH (09:25)
--- NOTE | 2018-01-23 09:25 | PCM.DCSUM1 ---
Discharge Summary - Hospital Course Diagnosis: Stroke: No - Discharge Data Discharge Date: 01/23/18 Discharge Disposition: Home, Self-Care 01 Condition: Stable - Patient Summary/Data Consults: Consultations 01/22/18 02:03 Consult to Physician [CONS] Stat - Patient Instructions Diet: Usual Diet as Tolerated Driving: May Drive Today Showering/Bathing: May Shower - Discharge Plan Home Medications: Home Meds Escitalopram [Lexapro] 20 mg PO DAILY 11/05/13 [History] Levonorgestrel [Mirena] 1 device VAG ONETIME 09/29/15 [History] Acetaminophen [Tylenol] 650 mg PO Q4H PRN 10/02/15 [History] ARIPiprazole [Abilify] 1 tab PO DAILY 01/21/18 [History] Naltrexone Microspheres [Vivitrol] 1 cap PO DAILY 01/21/18 [History] clonazePAM [Klonopin] 1 tab PO ASDIRECTED PRN 01/21/18 [History] Referrals: Brice De Souza MD [Physician] - - General Info Date of Service: 01/23/18 Functional Status: Reports: Pain Controlled - Review of Systems General: Reports: No Symptoms HEENT: Reports: No Symptoms Pulmonary: Reports: No Symptoms Cardiovascular: Reports: No Symptoms Gastrointestinal: Reports: No Symptoms Genitourinary: Reports: No Symptoms Musculoskeletal: Reports: No Symptoms Skin: Reports: No Symptoms Neurological: Reports: No Symptoms Psychiatric: Reports: No Symptoms - Patient Data Vitals - Most Recent: Last Vital Signs Temp 36.8 C 01/23/18 08:40 Pulse 100 01/23/18 08:40 Resp 12 01/23/18 08:40 BP 120/73 01/23/18 08:40 Pulse Ox 98 01/23/18 08:40 Weight - Most Recent: 151.4 kg I&O - Last 24 hours: Intake & Output 01/22/18 01/23/18 01/23/18 22:59 06:59 14:59 Intake Total 1100 800 Output Total 300 600 Balance 800 200 Lab Results - Last 24 hrs: Laboratory Results - last 24 hr 01/23/18 Range/Units 05:05 WBC 11.02 H (4.0-11.0) K/uL RBC 4.79 (4.30-5.90) M/uL Hgb 14.6 (12.0-16.0) g/dL Hct 43.4 (36.0-46.0) % MCV 90.6 (80.0-98.0) fL MCH 30.5 (27.0-32.0) pg MCHC 33.6 (31.0-37.0) g/dL RDW Std Deviation 41.1 (28.0-62.0) fl RDW Coeff of [place]uka 12 (11.0-15.0) % Plt Count 383 (150-400) K/uL MPV 10.00 (7.40-12.00) fL Neut % (Auto) 60.4 (48.0-80.0) % Lymph % (Auto) 29.3 (16.0-40.0) % [place] % (Auto) 6.2 (0.0-15.0) % Eos % (Auto) 3.7 (0.0-7.0) % Baso % (Auto) 0.4 (0.0-1.5) % Neut # (Auto) 6.7 H (1.4-5.7) K/uL Lymph # (Auto) 3.2 H (0.6-2.4) K/uL [place] # (Auto) 0.7 (0.0-0.8) K/uL Eos # (Auto) 0.4 (0.0-0.7) K/uL Baso # (Auto) 0.0 (0.0-0.1) K/uL Nucleated RBC % 0.0 /100WBC Nucleated RBCs # 0 K/uL [place] Results - Last 24 hrs: Microbiology 01/21/18 21:11 Aerobic Blood Culture - Preliminary Blood - Venous - Lab Draw NO GROWTH AFTER 1 DAY Anaerobic Blood Culture - Preliminary NO GROWTH AFTER 1 DAY 01/21/18 21:01 Aerobic Blood Culture - Preliminary Blood - Venous NO GROWTH AFTER 1 DAY Anaerobic Blood Culture - Preliminary NO GROWTH AFTER 1 DAY Med Orders - Current: Current Medications Doxycycline Hyclate (Vibramycin) 100 mg PO Q12HR [facility] Last Admin: 01/22/18 21:15 Dose: 100 mg Ondansetron HCl (Zofran) 4 mg IVPUSH Q4H PRN PRN Reason: Nausea/Vomiting Oxycodone/Acetaminophen (Percocet 325-5 Mg) 1 tab PO Q4H PRN PRN Reason: Pain Sodium Chloride (Saline Flush) 10 ml FLUSH ASDIRECTED PRN PRN Reason: Keep Vein Open Sodium Chloride (Saline Flush) 2.5 ml FLUSH ASDIRECTED PRN PRN Reason: Keep Vein Open Discontinued Medications Azithromycin (Zithromax) 1,000 mg PO NOW STA Stop: 01/21/18 17:19 Last Admin: 01/21/18 17:33 Dose: 1,000 mg Doxycycline Hyclate (Vibramycin) Confirm Administered Dose 100 mg .ROUTE .STK- MED ONE Stop: 01/21/18 22:35 Last Admin: 01/21/18 22:46 Dose: Not Given Sodium Chloride (Normal Saline) 1,000 mls @ 999 mls/hr IV STAT ONE Stop: 01/21/18 17:18 Last Admin: 01/21/18 16:47 Dose: 999 mls/hr Ceftriaxone Sodium 250 mg/ (Lidocaine HCl) 1 mls @ 1 mls/sec IM ONETIME ONE Stop: 01/21/18 17:19 Last Admin: 01/21/18 17:32 Dose: 1 mls/sec Ceftriaxone Sodium/Dextrose 1 (gm/ Premix) 50 mls @ 100 mls/hr IV ONETIME ONE Stop: 01/21/18 21:22 Last Admin: 01/21/18 21:00 Dose: Not Given Cefoxitin Sodium 2 gm/ Premix 50 mls @ 100 mls/hr IV Q6H [facility] Last Admin: 01/22/18 04:37 Dose: 100 mls/hr Cefoxitin Sodium 2 gm/ (Dextrose/Water) 50 mls @ 100 mls/hr IV Q6H [facility] Last Admin: 01/22/18 20:55 Dose: 100 mls/hr Iopamidol (Isovue Multipack-370 (76%)) 75 ml IVPUSH ONETIME ONE Stop: 01/21/18 18:50 Last Admin: 01/21/18 18:49 Dose: 75 ml Ketorolac Tromethamine (Toradol) 30 mg IVPUSH ONETIME ONE Stop: 01/21/18 16:19 Last Admin: 01/21/18 16:47 Dose: 30 mg - Exam General: Reports: Alert, Oriented HEENT: Reports: Pupils Equal, Pupils Reactive, EOMI, Mucous Membr. Moist/[place] Neck: Reports: Supple Lungs: Reports: Clear to Auscultation, Normal Respiratory Effort Cardiovascular: Reports: Regular Rate, Regular Rhythm GI/Abdominal Exam: Normal Bowel Sounds, Soft, Non-Tender, No Organomegaly, No Distention, No Abnormal Bruit, No Mass, Pelvis Stable (Female) Exam: Normal External Exam, Normal Speculum Exam, Normal Bimanual Exam Rectal (Female) Exam: Normal Exam, Normal Rectal Tone Back Exam: Reports: Normal Inspection, Full Range of Motion Extremities: Normal Inspection, Normal Range of Motion, Non-Tender, No Pedal Edema, Normal Capillary Refill Skin: Reports: Warm, Dry, Intact Wound/Incisions: Reports: Healing Well Neurological: Reports: No New Focal Deficit Psy/Mental Status: Reports: Alert, Normal Affect, Normal Mood
== END 2018-01-23 09:00 | disposition home or self-care (01) | DRG 759 ==
LOC: MW.ED 14:32 → MW.MS 01-22 00:01
PROVIDERS: ADMIT Obstetrics & Gynecology; ATTEND Obstetrics & Gynecology
DX: N70.93 Salpingitis and oophoritis, unspecified (principal); N73.9 Female pelvic inflammatory disease, unspecified; F41.9 Anxiety disorder, unspecified; F32.9 Major depressive disorder, single episode, unspecified; F17.200 Nicotine dependence, unspecified, uncomplicated; Z79.899 Other long term (current) drug therapy; Z87.42 Personal history of other diseases of the female genital tract; F12.90 Cannabis use, unspecified, uncomplicated; F15.90 Other stimulant use, unspecified, uncomplicated; Z20.2 Contact with and (suspected) exposure to infections with a predominantly sexual mode of transmission
CPT/HCPCS: 36415; 74019; 74019-26; 74177; 74177-26; 76830; 76830-26; 80053; 80305-QW; 81001; 81025; 83605; 83690; 85025; 86592; 87040; 87086; 87389; 87480; 87491; 87510; 87591; 87660; 96361; 96372; 96374; 99284; 99285-25; A9270-GY; J0694; J0696; J1885; J2001; J7040; J7060; Q9967

== ENCOUNTER 2018-05-08 21:56 | Emergency (ER) | payer MEDICAID ==
[2018-05-08 23:18] VITALS: BP 148/89
--- NOTE | 2018-05-08 23:23 | EDM.PDOC ---
ED HPI GENERAL MEDICAL PROBLEM - General Chief Complaint: General Stated Complaint: TOOTHACHE Time Seen by Provider: 05/08/18 23:23 Source of Information: Reports: Patient - History of Present Illness INITIAL COMMENTS - FREE TEXT/NARRATIVE: HISTORY AND PHYSICAL: History of present illness: [Patient has dental pain 6 out of 10 nonradiating right lower jaw she does have poor dentition with previous work she does have a dentist here in town she follows with mild swelling tender to the touch consistent with early abscess formation she does have Flagyl and Cataflam for vaginosis and some intermittent abdominal discomfort We'll be prescribing clindamycin today and substitute for the metronidazole which she just started today will cover the dental abscess and vaginosis new the diclofenac and I will provide dental balls Follow-up with dentist as soon as possible No fever nausea vomiting chills sweats ] Review of systems: As per history of present illness and below otherwise all systems reviewed and negative. Past medical history: As per history of present illness and as reviewed below otherwise noncontributory. Surgical history: As per history of present illness and as reviewed below otherwise noncontributory. Social history: No reported history of drug or alcohol abuse. Family history: As per history of present illness and as reviewed below otherwise noncontributory. Physical exam: HEENT: Atraumatic, normocephalic, pupils reactive, negative for conjunctival pallor or scleral icterus, mucous membranes moist, throat clear, neck supple, nontender, trachea midline. swelling along right lower gumline poor dentition with previous dental work noted Lungs: Clear to auscultation, breath sounds equal bilaterally, chest nontender. Heart: S1S2, regular, negative for clicks, rubs, or JVD. Abdomen: Soft, nondistended, nontender. Negative for masses or hepatosplenomegaly. Negative for costovertebral tenderness. Pelvis: Stable nontender. Genitourinary: Deferred. Rectal: Deferred. Extremities: Atraumatic, negative for cords or calf pain. Neurovascular unremarkable. Neuro: Awake, alert, oriented. Cranial nerves II through XII unremarkable. Cerebellum unremarkable. Motor and sensory unremarkable throughout. Exam nonfocal. Diagnostics: [] clinical Therapeutics: [] Interval balls Clindamycin Discontinue metronidazole Continue Cataflam Impression: [] dental abscess Definitive disposition and diagnosis as appropriate pending reevaluation and review of above. Right Lower Tooth/Teeth Pain Score (Numeric/FACES): 9 - Related Data Allergies Allergy/AdvReac Type Severity Reaction Status Date / Time No Known Allergies Allergy Verified 05/08/18 23:18 Home Meds: Home Meds Escitalopram [Lexapro] 20 mg PO DAILY 11/05/13 [History] Levonorgestrel [Mirena] 1 device VAG ONETIME 09/29/15 [History] Acetaminophen [Tylenol] 650 mg PO Q4H PRN 10/02/15 [History] ARIPiprazole [Abilify] 1 tab PO DAILY 01/21/18 [History] buPROPion [Wellbutrin] 50 mg PO DAILY 02/01/18 [History] Diclofenac Sodium [Voltaren] 50 mg PO DAILY 05/08/18 [History] cloNIDine [Catapres] 0.1 mg PO DAILY 05/08/18 [History] metroNIDAZOLE [Metronidazole] 500 mg PO BID 05/08/18 [History] Past Medical History - Past Health History Medical/Surgical History: Denies Medical/Surgical History HEENT History: Reports: None Other HEENT History: wears glasses/contacts Cardiovascular History: Reports: None Respiratory History: Reports: None Gastrointestinal History: Reports: Other (See Below) Other Gastrointestinal History: occasional heartburn Genitourinary History: Reports: None STATISTICAL ENGINEER History: Reports: None, Other (See Below) Other STATISTICAL ENGINEER History: Cyst on left fallopian tube Musculoskeletal History: Reports: None Neurological History: Reports: None Other Neuro History: states has motion sickness Psychiatric History: Reports: Addiction, Anxiety, Depression Endocrine/Metabolic History: Reports: None Hematologic History: Reports: None Immunologic History: Reports: None Oncologic (Cancer) History: Reports: None Dermatologic History: Reports: None - Infectious Disease History Infectious Disease History: Reports: Chicken Pox - Past Surgical History Head Surgeries/Procedures: Reports: None Cardiovascular Surgical History: Reports: None Respiratory Surgical History: Reports: None Female Surgical History: Reports: None Endocrine Surgical History: Reports: None Neurological Surgical History: Reports: None Musculoskeletal Surgical History: Reports: None Oncologic Surgical History: Reports: None Dermatological Surgical History: Reports: None Social & Family History - Family History Family Medical History: Noncontributory - Caffeine Use Caffeine Use: Reports: Coffee, Energy Drinks ED ROS GENERAL - Review of Systems Review Of Systems: See Below ED EXAM, GENERAL - Physical Exam Exam: See Below Course - Vital Signs Last Recorded V/S: Last Vital Signs Temp 97.0 F 05/08/18 23:16 Pulse 89 05/08/18 23:16 Resp 18 05/08/18 23:16 BP 148/89 H 05/08/18 23:16 Pulse Ox 99 05/08/18 23:16 - Orders/Labs/Meds Orders: Active Orders 24 hr Category Date Time Status Clindamycin HCl [Cleocin] Med 05/08/18 23:33 Once 150 mg PO ONETIME ONE Meds: Medications Discontinued Medications Generic Name Dose Route Start Last Admin Trade Name Freq PRN Reason Stop Dose Admin Octyl Cyanoacrylate 1 applic 05/08/18 23:27 Dermabond Advance TOP 05/08/18 23:28 ONETIME ONE Departure - Departure Time of Disposition: 23:35 Disposition: Home, Self-Care 01 Condition: Good Clinical Impression: Dental abscess - Discharge Information Referrals: PCP,None [Primary Care Provider] - Forms: ED Department Discharge Additional Instructions: The following information is given to patients seen in the emergency department who are being discharged to home. This information is to outline your options for follow-up care. We provide all patients seen in our emergency department with a follow-up referral. The need for follow-up, as well as the timing and circumstances, are variable depending upon the specifics of your emergency department visit. If you don't have a primary care physician on staff, we will provide you with a referral. We always advise you to contact your personal physician following an emergency department visit to inform them of the circumstance of the visit and for follow-up with them and/or the need for any referrals to a consulting specialist. The emergency department will also refer you to a specialist when appropriate. This referral assures that you have the opportunity for follow-up care with a specialist. All of these measure are taken in an effort to provide you with optimal care, which includes your follow-up. Under all circumstances we always encourage you to contact your private physician who remains a resource for coordinating your care. When calling for follow-up care, please make the office aware that this follow-up is from your recent emergency room visit. If for any reason you are refused follow-up, please contact the [facility] emergency department at and asked to speak to the emergency department charge nurse. - My Orders Last 24 Hours: My Active Orders 05/08/18 23:33 Clindamycin HCl [Cleocin] 150 mg PO ONETIME ONE - Assessment/Plan Last 24 Hours: My Active Orders 05/08/18 23:33 Clindamycin HCl [Cleocin] 150 mg PO ONETIME ONE
[2018-05-08] MEDS ORDERED: Octyl 2-Cyanoacrylate 1 Tube TOP ONE (23:27)
[2018-05-08] MEDS ORDERED: Clindamycin HCl 150 MG Cap PO ONE (23:33)
[2018-05-08] MEDS ORDERED: Lidocaine 2% Viscous Solution 15 ML Cup PO ONE (23:35)
[2018-05-08] MEDS ORDERED: Benzocaine 20% Topical Spray UD MUCMEM ONE (23:35)
== END 2018-05-09 00:11 | disposition home or self-care (01) ==
LOC: MW.ED 21:56
DX: K04.7 Periapical abscess without sinus (principal); Z79.899 Other long term (current) drug therapy
CPT/HCPCS: 99282; A9270

== ENCOUNTER 2019-06-21 18:12 | Emergency (ER) | payer MEDICAID ==
--- NOTE | 2019-06-21 18:27 | EDM.PDOCBH ---
ED HPI GENERAL MEDICAL PROBLEM - General Chief Complaint: Behavioral/Psych Stated Complaint: SUICIDE THOUGHT Time Seen by Provider: 06/21/19 18:14 Source of Information: Reports: Patient History Limitations: Reports: No Limitations - History of Present Illness INITIAL COMMENTS - FREE TEXT/NARRATIVE: HISTORY AND PHYSICAL: History of present illness: Patient is a 39-year-old female who presents to the emergency room by EMS and law enforcement for suicidal ideation. Law enforcement was called to do a welfare check on the patient. Upon arrival the patient was yelling at her son to "kill me" and requested that the child stab her. Evidently she stated that if the child was not going to kill her she was going to kill herself. Upon arrival she is tearful stating that she is a "horrible person...I just want to ". Reports she has history of anxiety and depression and is a routine marijuana and methamphetamine user (route: smokes). She states she last used methamphetamine 3 days ago. Currently taking Augmentin for a dental abscess. Review of systems: As per history of present illness and below otherwise all systems reviewed and negative. Past medical history: As per history of present illness and as reviewed below otherwise noncontributory. Surgical history: As per history of present illness and as reviewed below otherwise noncontributory. Social history: See social history for further information Family history: As per history of present illness and as reviewed below otherwise noncontributory. Physical exam: General: Well developed and well nourished 39-year-old female. Alert and oriented. Anxious appearing but in no acute distress. Nontoxic in appearance. HEENT: Atraumatic, normocephalic, pupils equal and reactive bilaterally, negative for conjunctival pallor or scleral icterus, mucous membranes moist, TMs normal bilaterally, throat clear, neck supple, nontender, trachea midline. No drooling or trismus noted. No meningeal signs. No hot potato voice noted. Lungs: Clear to auscultation, breath sounds equal bilaterally, chest nontender. Heart: S1S2, regular rate and rhythm without overt murmur Abdomen: Soft, nondistended, nontender. Negative for masses or hepatosplenomegaly. Negative for costovertebral tenderness. Skin: Intact, warm, dry. No lesions or rashes noted. Extremities: Atraumatic, moves all extremities per self without difficulty or deficits, negative for cords or calf pain. Neurovascular unremarkable. Neuro: Awake, alert, oriented. Cranial nerves II through XII unremarkable. Cerebellum unremarkable. Motor and sensory unremarkable throughout. Exam nonfocal. Notes: Lab work does show that she has methamphetamine, amphetamines and marijuana on board. She also has a significant UTI although she states she is asymptomatic. She is agreeable to receiving Rocephin IM. Urine also shows trichomonas, will give her Flagyl p.o. while here. 2020: [facility] in [place] was called. Dr. Santillan has accepted this patient. He has been calm and cooperative during her visit here in the emergency room. Vital signs remained stable. Emergency hold was placed on this patient due to her initial complaint. We currently have all her ambulances out on other transfers. Law enforcement is seeing if they would be able to transfer this patient Diagnostics: CBC, CMP, acetaminophen, salicylate, EtOH, UA, urine drug screen, hCGU, EKG Therapeutics: Rocephin 1 gm IM, Flagyl 2g PO Prescription: None Impression: Suicidal ideation Polysubstance Abuse UTI Trichomonas Plan: Transfer to [facility] for further care Definitive disposition and diagnosis as appropriate pending reevaluation and review of above. - Related Data Allergies Allergy/AdvReac Type Severity Reaction Status Date / Time No Known Allergies Allergy Verified 06/21/19 18:28 Home Meds: Home Meds Escitalopram [Lexapro] 20 mg PO DAILY 11/05/13 [History] ARIPiprazole [Abilify] 1 tab PO DAILY 01/21/18 [History] buPROPion [Wellbutrin] 150 mg PO DAILY 02/01/18 [History] Naltrexone 50 mg PO DAILY 06/21/19 [History] Past Medical History - Past Health History Medical/Surgical History: Denies Medical/Surgical History HEENT History: Reports: None Other HEENT History: wears glasses/contacts Cardiovascular History: Reports: None Respiratory History: Reports: None Gastrointestinal History: Reports: Other (See Below) Other Gastrointestinal History: occasional heartburn Genitourinary History: Reports: None SOFTWARE TEST AND VALIDATION ENGINEER History: Reports: None, Other (See Below) Other SOFTWARE TEST AND VALIDATION ENGINEER History: Cyst on left fallopian tube Musculoskeletal History: Reports: None Neurological History: Reports: None Other Neuro History: states has motion sickness Psychiatric History: Reports: Addiction, Anxiety, Depression Endocrine/Metabolic History: Reports: None Hematologic History: Reports: None Immunologic History: Reports: None Oncologic (Cancer) History: Reports: None Dermatologic History: Reports: None - Infectious Disease History Infectious Disease History: Reports: Chicken Pox - Past Surgical History Head Surgeries/Procedures: Reports: None Cardiovascular Surgical History: Reports: None Respiratory Surgical History: Reports: None Female Surgical History: Reports: None Endocrine Surgical History: Reports: None Neurological Surgical History: Reports: None Musculoskeletal Surgical History: Reports: None Oncologic Surgical History: Reports: None Dermatological Surgical History: Reports: None Social & Family History - Family History Family Medical History: Noncontributory - Caffeine Use Caffeine Use: Reports: Coffee, Energy Drinks ED ROS GENERAL - Review of Systems Review Of Systems: Comprehensive ROS is negative, except as noted in HPI. ED EXAM, BEHAVIORAL HEALTH - Physical Exam Exam: See Below (See dictation) COURSE, BEHAVIORAL HEALTH COMP - Course Vital Signs: Last Vital Signs Temp 97.5 F 06/21/19 18:25 Pulse 90 06/21/19 18:25 Resp 22 H 06/21/19 18:25 BP 131/80 06/21/19 18:25 Pulse Ox 98 06/21/19 18:25 Orders, Labs, Meds: Active Orders 24 hr Category Date Time Status EKG 12 Lead [EKG Documentation Completion] [RC] STAT Care 06/21/19 18:14 Active CULTURE URINE [RM] Stat Lab 06/21/19 19:50 Received Laboratory Tests 06/21/19 06/21/19 06/21/19 Range/Units 18:34 18:34 18:34 WBC 9.78 (4.0-11.0) K/uL RBC 4.98 (4.30-5.90) M/uL Hgb 15.3 (12.0-16.0) g/dL Hct 44.1 (36.0-46.0) % MCV 88.6 (80.0-98.0) fL MCH 30.7 (27.0-32.0) pg MCHC 34.7 (31.0-37.0) g/dL RDW Std Deviation 38.8 (28.0-62.0) fl RDW Coeff of Renuka 12 (11.0-15.0) % Plt Count 285 (150-400) K/uL MPV 10.10 (7.40-12.00) fL Neut % (Auto) 53.5 (48.0-80.0) % Lymph % (Auto) 36.1 (16.0-40.0) % [place] % (Auto) 7.4 (0.0-15.0) % Eos % (Auto) 2.7 (0.0-7.0) % Baso % (Auto) 0.3 (0.0-1.5) % Neut # (Auto) 5.2 (1.4-5.7) K/uL Lymph # (Auto) 3.5 H (0.6-2.4) K/uL [place] # (Auto) 0.7 (0.0-0.8) K/uL Eos # (Auto) 0.3 (0.0-0.7) K/uL Baso # (Auto) 0.0 (0.0-0.1) K/uL Nucleated RBC % 0.0 /100WBC Nucleated RBCs # 0 K/uL Sodium 140 (136-145) mmol/L Potassium 3.4 L (3.5-5.1) mmol/L Chloride 105 (98-107) mmol/L Carbon Dioxide 20.6 L (21.0-32.0) mmol/L BUN 20 H (7.0-18.0) mg/dL Creatinine 0.8 (0.6-1.0) mg/dL Est Cr Clr Drug Dosing 72.65 mL/min Estimated GFR (MDRD) > 60.0 ml/min Glucose 98 (74-106) mg/dL Calcium 9.2 (8.5-10.1) mg/dL Total Bilirubin 0.5 (0.2-1.0) mg/dL AST 17 (15-37) IU/L ALT 26 (14-63) IU/L Alkaline Phosphatase 118 H (46-116) U/L Total Protein 7.4 (6.4-8.2) g/dL Albumin 3.6 (3.4-5.0) g/dL Globulin 3.8 (2.6-4.0) g/dL Albumin/Globulin Ratio 0.9 (0.9-1.6) TSH 3rd Generation 3.73 (0.36-3.74) uIU/mL Urine Color Urine Appearance Urine pH (5.0-8.0) Ur Specific Ephraim (1.001-1.035) Urine Protein (NEGATIVE) mg/dL Urine Glucose (UA) (NEGATIVE) mg/dL Urine Ketones (NEGATIVE) mg/dL Urine Occult Blood (NEGATIVE) Urine Nitrite (NEGATIVE) Urine Bilirubin (NEGATIVE) Urine Urobilinogen (<2.0) EU/dL Ur Leukocyte Esterase (NEGATIVE) Urine RBC (0-2/HPF) Urine WBC (0-5/HPF) Ur Epithelial Cells (NONE-FEW) Urine Bacteria (NEGATIVE) Urine Mucus (NONE-MOD) Urine Trichomonas (NEGATIVE) Urine HCG, Qual (NEGATIVE) Salicylates 4.4 (0-20) mg/dL Urine Opiates Screen (NEGATIVE) Ur Oxycodone Screen (NEGATIVE) Urine Methadone Screen (NEGATIVE) Acetaminophen <2.0 ug/mL Ur Barbiturates Screen (NEGATIVE) Ur Phencyclidine Scrn (NEGATIVE) Ur Amphetamine Screen (NEGATIVE) U Methamphetamines Scrn (NEGATIVE) U Benzodiazepines Scrn (NEGATIVE) U Cocaine Metab Screen (NEGATIVE) U Marijuana (THC) Screen (NEGATIVE) Ethyl Alcohol <3 mg/dL 06/21/19 06/21/19 06/21/19 Range/Units 19:50 19:50 19:50 WBC (4.0-11.0) K/uL RBC (4.30-5.90) M/uL Hgb (12.0-16.0) g/dL Hct (36.0-46.0) % MCV (80.0-98.0) fL MCH (27.0-32.0) pg MCHC (31.0-37.0) g/dL RDW Std Deviation (28.0-62.0) fl RDW Coeff of Renuka (11.0-15.0) % Plt Count (150-400) K/uL MPV (7.40-12.00) fL Neut % (Auto) (48.0-80.0) % Lymph % (Auto) (16.0-40.0) % [place] % (Auto) (0.0-15.0) % Eos % (Auto) (0.0-7.0) % Baso % (Auto) (0.0-1.5) % Neut # (Auto) (1.4-5.7) K/uL Lymph # (Auto) (0.6-2.4) K/uL [place] # (Auto) (0.0-0.8) K/uL Eos # (Auto) (0.0-0.7) K/uL Baso # (Auto) (0.0-0.1) K/uL Nucleated RBC % /100WBC Nucleated RBCs # K/uL Sodium (136-145) mmol/L Potassium (3.5-5.1) mmol/L Chloride (98-107) mmol/L Carbon Dioxide (21.0-32.0) mmol/L BUN (7.0-18.0) mg/dL Creatinine (0.6-1.0) mg/dL Est Cr Clr Drug Dosing mL/min Estimated GFR (MDRD) ml/min Glucose (74-106) mg/dL Calcium (8.5-10.1) mg/dL Total Bilirubin (0.2-1.0) mg/dL AST (15-37) IU/L ALT (14-63) IU/L Alkaline Phosphatase (46-116) U/L Total Protein (6.4-8.2) g/dL Albumin (3.4-5.0) g/dL Globulin (2.6-4.0) g/dL Albumin/Globulin Ratio (0.9-1.6) TSH 3rd Generation (0.36-3.74) uIU/mL Urine Color YELLOW Urine Appearance HAZY Urine pH 6.5 (5.0-8.0) Ur Specific [place] 1.025 (1.001-1.035) Urine Protein TRACE H (NEGATIVE) mg/dL Urine Glucose (UA) NEGATIVE (NEGATIVE) mg/dL Urine Ketones 40 H (NEGATIVE) mg/dL Urine Occult Blood TRACE-INTACT H (NEGATIVE) Urine Nitrite NEGATIVE (NEGATIVE) Urine Bilirubin NEGATIVE (NEGATIVE) Urine Urobilinogen 2.0 H (<2.0) EU/dL Ur Leukocyte Esterase SMALL H (NEGATIVE) Urine RBC 1-3 (0-2/HPF) Urine WBC 20-25 (0-5/HPF) Ur Epithelial Cells MODERATE (NONE-FEW) Urine Bacteria 2+ H (NEGATIVE) Urine Mucus MODERATE (NONE-MOD) Urine Trichomonas PRESENT (NEGATIVE) Urine HCG, Qual NEGATIVE (NEGATIVE) Salicylates (0-20) mg/dL Urine Opiates Screen NEGATIVE (NEGATIVE) Ur Oxycodone Screen NEGATIVE (NEGATIVE) Urine Methadone Screen NEGATIVE (NEGATIVE) Acetaminophen ug/mL Ur Barbiturates Screen NEGATIVE (NEGATIVE) Ur Phencyclidine Scrn NEGATIVE (NEGATIVE) Ur Amphetamine Screen POSITIVE (NEGATIVE) U Methamphetamines Scrn POSITIVE (NEGATIVE) U Benzodiazepines Scrn NEGATIVE (NEGATIVE) U Cocaine Metab Screen NEGATIVE (NEGATIVE) U Marijuana (THC) Screen POSITIVE (NEGATIVE) Ethyl Alcohol mg/dL Medications Discontinued Medications Generic Name Dose Route Start Last Admin Trade Name Freq PRN Reason Stop Dose Admin Ceftriaxone Sodium 1 gm/ 4 mls @ 4 mls/sec 06/21/19 20:18 06/21/19 20:39 Lidocaine HCl IM 06/21/19 20:19 4 mls/sec ONETIME ONE Administration Metronidazole 2,000 mg 06/21/19 20:18 06/21/19 20:39 Metronidazole PO 06/21/19 20:19 2,000 mg NOW ONE Administration Departure - Departure Time of Disposition: 21:07 Disposition: DC/Tfer to Psych Hosp/Unit [facility] Clinical Impression: Suicidal ideation, Polysubstance abuse, Exposure to trichomonas UTI (urinary tract infection) Qualifiers: Urinary tract infection type: site unspecified Hematuria presence: without hematuria Qualified Code(s): N39.0 - Urinary tract infection, site not specified - Discharge Information Referrals: PCP,Unobtain [Primary Care Provider] - Forms: ED Department Discharge Sepsis Event Note - Focused Exam Vital Signs: Vital Signs Temp Pulse Resp BP Pulse Ox 06/21/19 18:25 97.5 F 90 22 H 131/80 98 Date Exam was Performed: 06/21/19 Time Exam was Performed: 21:07 - My Orders Last 24 Hours: My Active Orders 06/21/19 18:14 EKG 12 Lead [EKG Documentation Completion] [RC] STAT 06/21/19 19:50 CULTURE URINE [RM] Stat - Assessment/Plan Last 24 Hours: My Active Orders 06/21/19 18:14 EKG 12 Lead [EKG Documentation Completion] [RC] STAT 06/21/19 19:50 CULTURE URINE [RM] Stat
[2019-06-21 19:12] LABS: ACETAMINOPHEN <2.0 ug/mL
[2019-06-21 19:23] LABS: BLOOD UREA NITROGEN,BUN 20 mg/dL (7.0-18.0); CARBON DIOXIDE,CO2 20.6 mmol/L (21.0-32.0); CHLORIDE,CL 105 mmol/L (98-107); GLUCOSE RANDOM 98 mg/dL (74-106); POTASSIUM,K 3.4 mmol/L (3.5-5.1); SODIUM,NA 140 mmol/L (136-145)
[2019-06-21] MEDS ORDERED: metroNIDAZOLE 250 MG Tab PO ONE (20:18)
[2019-06-21] MEDS ORDERED: cefTRIAXone 1 GM in Lidocaine 1% 4 ML IM ONE (20:18)
[2019-06-21 21:39] VITALS: BP 129/96; PULSE 99
== END 2019-06-21 21:30 ==
LOC: MW.ED 18:12
DX: R45.851 Suicidal ideations (principal); N39.0 Urinary tract infection, site not specified; F19.10 Other psychoactive substance abuse, uncomplicated; A59.9 Trichomoniasis, unspecified; F41.9 Anxiety disorder, unspecified; F32.9 Major depressive disorder, single episode, unspecified; Z79.899 Other long term (current) drug therapy
CPT/HCPCS: 36415; 80053; 80305; 80307; 81001; 81025; 84443; 85025; 87086; 93005; 96372; 99285; A9270; J0696; J2001; 99284

== ENCOUNTER 2019-07-07 21:03 | Emergency (ER) | payer SELFPAY ==
[2019-07-07] MEDS ORDERED: Sodium Chloride 0.9% 1,000 ML IV ONE (21:36)
[2019-07-07] MEDS ORDERED: Ondansetron 4 MG/2 ML SDV IVPUSH ONE (21:36)
--- NOTE | 2019-07-07 21:42 | EDM.PDOC ---
ED HPI GENERAL MEDICAL PROBLEM - General Chief Complaint: Abdominal Pain Stated Complaint: ABDOMINAL PAIN Time Seen by Provider: 07/07/19 21:37 Source of Information: Reports: Patient, Assisted Records History Limitations: Reports: No Limitations - History of Present Illness INITIAL COMMENTS - FREE TEXT/NARRATIVE: 39-year-old female who presents to the emergency room with abdominal pain and nausea. Patient states she has been nauseated for the past 2 days. Patient is able to keep fluids down but is so nauseated she curls in a ball. Patient does not believe she is . Patient has no other problems Onset: Today Duration: Hour(s):, Intermittent Location: Reports: Abdomen Severity: Mild Worsens with: Reports: None Associated Symptoms: Reports: No Other Symptoms, Nausea/Vomiting Left Lower Abdominal Pain Score (Numeric/FACES): 6 - Related Data Allergies Allergy/AdvReac Type Severity Reaction Status Date / Time No Known Allergies Allergy Verified 07/07/19 21:19 Home Meds: Home Meds Escitalopram [Lexapro] 20 mg PO DAILY 11/05/13 [History] ARIPiprazole [Abilify] 1 tab PO DAILY 01/21/18 [History] buPROPion [Wellbutrin] 150 mg PO DAILY 02/01/18 [History] Naltrexone 50 mg PO DAILY 06/21/19 [History] levonorgestreL [Mirena] 1 each IMPLANT ASDIRECTED 07/07/19 [History] Past Medical History - Past Health History Medical/Surgical History: Denies Medical/Surgical History HEENT History: Reports: None Other HEENT History: wears glasses/contacts Cardiovascular History: Reports: None Respiratory History: Reports: None Gastrointestinal History: Reports: Other (See Below) Other Gastrointestinal History: occasional heartburn Genitourinary History: Reports: None ENGLISH COMPOSITION TEACHER History: Reports: None, Other (See Below) Other ENGLISH COMPOSITION TEACHER History: Cyst on left fallopian tube Musculoskeletal History: Reports: None Neurological History: Reports: None Other Neuro History: states has motion sickness Psychiatric History: Reports: Addiction, Anxiety, Depression Endocrine/Metabolic History: Reports: None Hematologic History: Reports: None Immunologic History: Reports: None Oncologic (Cancer) History: Reports: None Dermatologic History: Reports: None - Infectious Disease History Infectious Disease History: Reports: Chicken Pox - Past Surgical History Head Surgeries/Procedures: Reports: None Cardiovascular Surgical History: Reports: None Respiratory Surgical History: Reports: None Female Surgical History: Reports: None Endocrine Surgical History: Reports: None Neurological Surgical History: Reports: None Musculoskeletal Surgical History: Reports: None Oncologic Surgical History: Reports: None Dermatological Surgical History: Reports: None Social & Family History - Family History Family Medical History: Noncontributory - Tobacco Use Smoking Status *Q: Current Every Day Smoker Years of Tobacco use: 15 Packs/Tins Daily: 0.5 - Caffeine Use Caffeine Use: Reports: Coffee, Energy Drinks - Recreational Drug Use Recreational Drug Use: Yes Recreational Drug Type: Reports: Marijuana/Hashish Recreational Drug Use Frequency: Weekly ED ROS GENERAL - Review of Systems Review Of Systems: See Below Constitutional: Reports: No Symptoms HEENT: Reports: No Symptoms Respiratory: Reports: No Symptoms Cardiovascular: Reports: No Symptoms Endocrine: Reports: No Symptoms GI/Abdominal: Reports: Abdominal Pain : Reports: No Symptoms Musculoskeletal: Reports: No Symptoms Skin: Reports: No Symptoms Neurological: Reports: No Symptoms Psychiatric: Reports: No Symptoms Hematologic/Lymphatic: Reports: No Symptoms Immunologic: Reports: No Symptoms ED EXAM, GI/ABD - Physical Exam Exam: See Below Exam Limited By: No Limitations General Appearance: Alert, WD/WN, No Apparent Distress Ears: Normal External Exam, Normal Canal Nose: Normal Inspection, Normal Mucosa Throat/Mouth: Normal Inspection, Normal Lips Head: Atraumatic, Normocephalic Neck: Normal Inspection Respiratory/Chest: No Respiratory Distress, Lungs Clear, No Accessory Muscle Use Cardiovascular: Normal Peripheral Pulses, Regular Rate, Rhythm, No JVD, No Murmur GI/Abdominal Exam: Normal Bowel Sounds, Soft, Non-Tender, No Distention, No Abnormal Bruit (Female) Exam: Deferred Rectal (Female) Exam: Deferred Back Exam: Normal Inspection, Full Range of Motion Extremities: Normal Inspection, Normal Range of Motion, Non-Tender Neurological: Alert, Oriented, CN II-XII Intact, Normal Cognition, Normal Reflexes, No Motor/Sensory Deficits Psychiatric: Normal Affect, Normal Mood Skin Exam: Warm, Dry, Intact, Normal Color Lymphatic: No Adenopathy Course - Vital Signs Text/Narrative:: This is a 39-year-old female who presents the emergency room with a chief complaint of nausea and some abdominal pain Patient's initial physical exam was completely normal patient had minimal abdominal pain to know. Patient labs came back she has normal CBC she is not . Reevaluation at 11:08 PM Patient sleeping. Abdomen soft nontender negative flank pain. She had was given IV fluids and Zofran no longer nauseated. Patient will be discharged home with a diagnosis of nausea. Patient will be sent home on Zofran Last Recorded V/S: Last Vital Signs Temp 97.1 F 07/07/19 21:20 Pulse 94 07/07/19 21:20 Resp 17 07/07/19 21:20 BP 123/62 07/07/19 21:20 Pulse Ox 96 07/07/19 21:20 - Orders/Labs/Meds Labs: Laboratory Tests 07/07/19 07/07/19 07/07/19 Range/Units 21:38 21:38 21:49 WBC 10.00 (4.0-11.0) K/uL RBC 4.54 (4.30-5.90) M/uL Hgb 14.1 (12.0-16.0) g/dL Hct 41.4 (36.0-46.0) % MCV 91.2 (80.0-98.0) fL MCH 31.1 (27.0-32.0) pg MCHC 34.1 (31.0-37.0) g/dL RDW Std Deviation 42.2 (28.0-62.0) fl RDW Coeff of Renuka 13 (11.0-15.0) % Plt Count 349 (150-400) K/uL MPV 10.50 (7.40-12.00) fL Neut % (Auto) 48.4 (48.0-80.0) % Lymph % (Auto) 41.6 H (16.0-40.0) % Pender % (Auto) 6.8 (0.0-15.0) % Eos % (Auto) 2.8 (0.0-7.0) % Baso % (Auto) 0.4 (0.0-1.5) % Neut # (Auto) 4.8 (1.4-5.7) K/uL Lymph # (Auto) 4.2 H (0.6-2.4) K/uL Pender # (Auto) 0.7 (0.0-0.8) K/uL Eos # (Auto) 0.3 (0.0-0.7) K/uL Baso # (Auto) 0.0 (0.0-0.1) K/uL Nucleated RBC % 0.0 /100WBC Nucleated RBCs # 0 K/uL Sodium (136-145) mmol/L Potassium (3.5-5.1) mmol/L Chloride (98-107) mmol/L Carbon Dioxide (21.0-32.0) mmol/L BUN (7.0-18.0) mg/dL Creatinine (0.6-1.0) mg/dL Est Cr Clr Drug Dosing mL/min Estimated GFR (MDRD) ml/min Glucose (74-106) mg/dL Calcium (8.5-10.1) mg/dL Total Bilirubin (0.2-1.0) mg/dL AST (15-37) IU/L ALT (14-63) IU/L Alkaline Phosphatase (46-116) U/L Total Protein (6.4-8.2) g/dL Albumin (3.4-5.0) g/dL Globulin (2.6-4.0) g/dL Albumin/Globulin Ratio (0.9-1.6) Urine Color YELLOW Urine Appearance CLEAR Urine pH 6.0 (5.0-8.0) Ur Specific [place] 1.025 (1.001-1.035) Urine Protein NEGATIVE (NEGATIVE) mg/dL Urine Glucose (UA) NEGATIVE (NEGATIVE) mg/dL Urine Ketones NEGATIVE (NEGATIVE) mg/dL Urine Occult Blood NEGATIVE (NEGATIVE) Urine Nitrite NEGATIVE (NEGATIVE) Urine Bilirubin NEGATIVE (NEGATIVE) Urine Urobilinogen 0.2 (<2.0) EU/dL Ur Leukocyte Esterase NEGATIVE (NEGATIVE) Urine HCG, Qual NEGATIVE (NEGATIVE) 07/07/19 Range/Units 21:49 WBC (4.0-11.0) K/uL RBC (4.30-5.90) M/uL Hgb (12.0-16.0) g/dL Hct (36.0-46.0) % MCV (80.0-98.0) fL MCH (27.0-32.0) pg MCHC (31.0-37.0) g/dL RDW Std Deviation (28.0-62.0) fl RDW Coeff of Renuka (11.0-15.0) % Plt Count (150-400) K/uL MPV (7.40-12.00) fL Neut % (Auto) (48.0-80.0) % Lymph % (Auto) (16.0-40.0) % Pender % (Auto) (0.0-15.0) % Eos % (Auto) (0.0-7.0) % Baso % (Auto) (0.0-1.5) % Neut # (Auto) (1.4-5.7) K/uL Lymph # (Auto) (0.6-2.4) K/uL Pender # (Auto) (0.0-0.8) K/uL Eos # (Auto) (0.0-0.7) K/uL Baso # (Auto) (0.0-0.1) K/uL Nucleated RBC % /100WBC Nucleated RBCs # K/uL Sodium 142 (136-145) mmol/L Potassium 3.6 (3.5-5.1) mmol/L Chloride 105 (98-107) mmol/L Carbon Dioxide 26.5 (21.0-32.0) mmol/L BUN 13 (7.0-18.0) mg/dL Creatinine 0.9 (0.6-1.0) mg/dL Est Cr Clr Drug Dosing 64.58 mL/min Estimated GFR (MDRD) > 60.0 ml/min Glucose 84 (74-106) mg/dL Calcium 9.4 (8.5-10.1) mg/dL Total Bilirubin 0.2 (0.2-1.0) mg/dL AST 18 (15-37) IU/L ALT 38 (14-63) IU/L Alkaline Phosphatase 116 (46-116) U/L Total Protein 7.0 (6.4-8.2) g/dL Albumin 3.7 (3.4-5.0) g/dL Globulin 3.3 (2.6-4.0) g/dL Albumin/Globulin Ratio 1.1 (0.9-1.6) Urine Color Urine Appearance Urine pH (5.0-8.0) Ur Specific [place] (1.001-1.035) Urine Protein (NEGATIVE) mg/dL Urine Glucose (UA) (NEGATIVE) mg/dL Urine Ketones (NEGATIVE) mg/dL Urine Occult Blood (NEGATIVE) Urine Nitrite (NEGATIVE) Urine Bilirubin (NEGATIVE) Urine Urobilinogen (<2.0) EU/dL Ur Leukocyte Esterase (NEGATIVE) Urine HCG, Qual (NEGATIVE) Meds: Medications Discontinued Medications Generic Name Dose Route Start Last Admin Trade Name Freq PRN Reason Stop Dose Admin Sodium Chloride 1,000 mls @ 1,000 mls/hr 07/07/19 21:36 07/07/19 21:50 Normal Saline IV 07/07/19 22:35 1,000 mls/hr .Bolus ONE Administration Ondansetron HCl 4 mg 07/07/19 21:36 07/07/19 21:50 Zofran IVPUSH 07/07/19 21:37 4 mg ONETIME ONE Administration Departure - Departure Time of Disposition: 23:10 Disposition: Home, Self-Care 01 Condition: Good Clinical Impression: Nausea - Discharge Information Referrals: Willy Matthews MD [Primary Care Provider] - Forms: ED Department Discharge Sepsis Event Note - Evaluation Sepsis Screening Result: No Definite Risk - Focused Exam Vital Signs: Vital Signs Temp Pulse Resp BP Pulse Ox 07/07/19 21:20 97.1 F 94 17 123/62 96 Date Exam was Performed: 07/07/19 Time Exam was Performed: 23:07
[2019-07-07 22:36] LABS: BLOOD UREA NITROGEN,BUN 13 mg/dL (7.0-18.0); CARBON DIOXIDE,CO2 26.5 mmol/L (21.0-32.0); CHLORIDE,CL 105 mmol/L (98-107); GLUCOSE RANDOM 84 mg/dL (74-106); POTASSIUM,K 3.6 mmol/L (3.5-5.1); SODIUM,NA 142 mmol/L (136-145)
[2019-07-07 23:38] VITALS: BP 114/67; PULSE 90
== END 2019-07-07 23:32 | disposition home or self-care (01) ==
LOC: MW.ED 21:03
DX: R11.0 Nausea (principal); R10.32 Left lower quadrant pain; Z79.899 Other long term (current) drug therapy
CPT/HCPCS: 36415; 80053; 81003; 81025; 85025; 96361; 96374; 99284; J2405; J7030; 99283

== ENCOUNTER 2019-07-28 22:46 | Emergency (ER) | payer MEDICAID ==
[2019-07-28] MEDS ORDERED: Ondansetron 4 MG Tab PO ONE (23:16)
[2019-07-28] MEDS ORDERED: Ketorolac 30 MG/ML SDV IM ONE (23:16)
[2019-07-28] MEDS ORDERED: Penicillin V Potassium 500 MG Tab PO ONE (23:45)
--- NOTE | 2019-07-28 23:46 | EDM.PDOC ---
ED [facility] GENERAL MEDICAL PROBLEM - General Chief Complaint: General Stated Complaint: flu symtoms Time Seen by Provider: 07/28/19 23:51 Source of Information: Reports: Patient History Limitations: Reports: No Limitations - History of Present Illness INITIAL COMMENTS - FREE TEXT/NARRATIVE: Patient 39-year-old female with past medical history of depression presenting with chief complaint of sore throat. Patient states she has had sore throat all day today. Patient reports associated vomiting just after arrival to the ER. Patient reports some associated nausea but no diarrhea. Patient denies any blood per sinus congestion, shortness of breath, cough. Patient has taken some ibuprofen with minimal relief. Patient states she otherwise feels well and has had no sick contacts or recent travel. Pmhx: Depression Pshx: None Family Hx: noncontributory Smoking history? No Etoh use? none Drug use? none In addition to that documented in the HPI above, the additional ROS was obtained : Constitutional: Denies fevers or chills Eyes: Denies vision changes ENMT: Per HPI CV: Denies chest pain Resp: Denies SOB GI: Denies vomiting or diarrhea : Denies painful urination MSK: Denies recent trauma Skin: Denies new rashes Neuro: Denies new numbness or tingling or weakness Endocrine: Denies unexpected weight loss Heme: Denies bleeding disorders I have reviewed the triage vital signs Const: Well nourished, well developed, appears stated age Eyes: PERRL, no conjunctival injection HENT: Bilateral swollen tonsils with midline uvula. No stridor. Tolerating secretions and swallowing without difficulty. No trismus. NCAT, Neck supple without meningismus CV: RRR, Warm, well-perfused extremities RESP: CTAB, Unlabored respiratory effort GI: soft, non-tender, non-distended, no masses MSK: No gross deformities appreciated Skin: Warm, dry. No rashes Neuro: Alert, office rep II-XII grossly intact. Sensation and motor function of extremities grossly intact. Psych: Appropriate mood and affect Assessment and plan: Patient is 39-year-old female presenting with chief complaint of sore throat. Patient's rapid strep test was positive for strep throat. Patient has no evidence of airway obstruction. Patient feels better after administration of medication in the emergency room. Patient initiated on antibiotics. Patient will be discharged home and given return precautions. All questions addressed and answered. Patient agrees with plan. Throat Pain Score (Numeric/FACES): 9 - Related Data Allergies Allergy/AdvReac Type Severity Reaction Status Date / Time No Known Allergies Allergy Verified 07/28/19 23:03 Home Meds: Home Meds Escitalopram [Lexapro] 20 mg PO DAILY 11/05/13 [History] ARIPiprazole [Abilify] 1 tab PO DAILY 01/21/18 [History] buPROPion [Wellbutrin] 150 mg PO DAILY 02/01/18 [History] Naltrexone 50 mg PO DAILY 06/21/19 [History] levonorgestreL [Mirena] 1 each IMPLANT ASDIRECTED 07/07/19 [History] Penicillin V Potassium 500 mg PO Q6HR #40 tab 07/28/19 [Rx] Past Medical History - Past Health History Medical/Surgical History: Denies Medical/Surgical History HEENT History: Reports: None Other HEENT History: wears glasses/contacts Cardiovascular History: Reports: None Respiratory History: Reports: None Gastrointestinal History: Reports: Other (See Below) Other Gastrointestinal History: occasional heartburn Genitourinary History: Reports: None CHEMICAL WEIGHER History: Reports: None, Other (See Below) Other CHEMICAL WEIGHER History: Cyst on left fallopian tube Musculoskeletal History: Reports: None Neurological History: Reports: None Other Neuro History: states has motion sickness Psychiatric History: Reports: Addiction, Anxiety, Depression Endocrine/Metabolic History: Reports: None Hematologic History: Reports: None Immunologic History: Reports: None Oncologic (Cancer) History: Reports: None Dermatologic History: Reports: None - Infectious Disease History Infectious Disease History: Reports: Chicken Pox - Past Surgical History Head Surgeries/Procedures: Reports: None Cardiovascular Surgical History: Reports: None Respiratory Surgical History: Reports: None Female Surgical History: Reports: None Endocrine Surgical History: Reports: None Neurological Surgical History: Reports: None Musculoskeletal Surgical History: Reports: None Oncologic Surgical History: Reports: None Dermatological Surgical History: Reports: None Social & Family History - Family History Family Medical History: Noncontributory - Tobacco Use Smoking Status *Q: Current Every Day Smoker Years of Tobacco use: 21 Packs/Tins Daily: 0.5 - Caffeine Use Caffeine Use: Reports: None - Recreational Drug Use Recreational Drug Use: Yes Recreational Drug Type: Reports: Marijuana/Hashish ED ROS GENERAL - Review of Systems Review Of Systems: See Below ED EXAM, GENERAL - Physical Exam Exam: See Below Course - Vital Signs Last Recorded V/S: Last Vital Signs Temp 36.4 C 07/28/19 23:02 Pulse 78 07/28/19 23:02 Resp 18 07/28/19 23:02 BP 138/82 07/28/19 23:02 Pulse Ox 98 07/28/19 23:02 - Orders/Labs/Meds Meds: Medications Discontinued Medications Generic Name Dose Route Start Last Admin Trade Name Lloyd PRN Reason Stop Dose Admin Ketorolac Tromethamine 30 mg 07/28/19 23:16 07/28/19 23:26 Toradol IM 07/28/19 23:17 30 mg ONETIME ONE Administration Ondansetron HCl 4 mg 07/28/19 23:16 07/28/19 23:27 Zofran PO 07/28/19 23:17 4 mg ONETIME ONE Administration Penicillin V Potassium 500 mg 07/28/19 23:45 Veetids PO 07/28/19 23:46 ONETIME ONE Departure - Departure Time of Disposition: 23:45 Disposition: Home, Self-Care 01 Clinical Impression: Pharyngitis - Discharge Information Prescriptions: Penicillin V Potassium 500 mg PO Q6HR #40 tab Instructions: Strep Throat, [id number] Referrals: PCP,None [Primary Care Provider] - Forms: ED Department Discharge Sepsis Event Note - Evaluation Sepsis Screening Result: No Definite Risk - Focused Exam Vital Signs: Vital Signs Temp Pulse Resp BP Pulse Ox 07/28/19 23:02 36.4 C 78 18 138/82 98 Date Exam was Performed: 07/28/19 Time Exam was Performed: 23:51
[2019-07-29 00:12] VITALS: BP 128/81; PULSE 70
== END 2019-07-29 00:05 | disposition home or self-care (01) ==
LOC: MW.ED 22:46
DX: J02.9 Acute pharyngitis, unspecified (principal); F41.9 Anxiety disorder, unspecified; F32.9 Major depressive disorder, single episode, unspecified; F17.210 Nicotine dependence, cigarettes, uncomplicated; Z79.899 Other long term (current) drug therapy
CPT/HCPCS: 87880; 96372; 99283; A9270; J1885

== ENCOUNTER 2019-09-17 10:11 | Emergency (ER) | payer MEDICAID, OTHER ==
--- NOTE | 2019-09-17 10:24 | EDM.PDOC ---
ED HPI GENERAL MEDICAL PROBLEM - General Chief Complaint: ENT Problem Stated Complaint: SORE THROAT Time Seen by Provider: 09/17/19 10:22 Source of Information: Reports: Patient History Limitations: Reports: No Limitations - History of Present Illness INITIAL COMMENTS - FREE TEXT/NARRATIVE: HISTORY AND PHYSICAL: History of present illness: Patient is a 39-year-old female presents to the ED with complaint of sore throat. Patient reports sore throat x 5 days. She denies fevers, chills, ear pain, cough, chest pain, shortness of breath. She states she has been nauseous and vomited once. She denies any difficulty breathing or swallowing. She is taking motrin with some relief of pain. Pain is worse with eating. Review of systems: As per history of present illness and below otherwise all systems reviewed and negative. Past medical history: As per history of present illness and as reviewed below otherwise noncontributory. Surgical history: As per history of present illness and as reviewed below otherwise noncontributory. Social history: No reported history of drug or alcohol abuse. Family history: As per history of present illness and as reviewed below otherwise noncontributory. Physical exam: General: Patient sitting comfortably in no acute distress and nontoxic appearing HEENT: Posterior oropharynx and soft palate is erythematous. Tonsils not visualized. Anterior cervical LAD appreciated. Atraumatic, normocephalic, pupils reactive, negative for conjunctival pallor or scleral icterus, mucous membranes moist, throat clear, neck supple, nontender, trachea midline. No meningeal signs. Lungs: Clear to auscultation, breath sounds equal bilaterally, chest nontender. Heart: S1S2, regular, negative for clicks, rubs, or overt murmur. Abdomen: Soft, nondistended, nontender. Negative for masses or hepatosplenomegaly. Negative for costovertebral tenderness. No rigidity, rebound , guarding. Pelvis: Stable nontender. Genitourinary: Deferred. Rectal: Deferred. Extremities: Atraumatic, negative for cords or calf pain. Neurovascular unremarkable. Neuro: Awake, alert, oriented. Cranial nerves II through XII unremarkable. Cerebellum unremarkable. Motor and sensory unremarkable throughout. Exam nonfocal. Notes: Diagnostics: Rapid strep, COVID Therapeutics: none Prescriptions: Penicillin Impression: Strep pharyngitis Plan: Take antibiotic as instructed Alternate tylenol and motrin as needed Follow up with primary care provider Return to ED as needed as discussed Definitive disposition and diagnosis as appropriate pending reevaluation and review of above. Throat Pain Score (Numeric/FACES): 3 - Related Data Allergies Allergy/AdvReac Type Severity Reaction Status Date / Time No Known Allergies Allergy Verified 09/17/19 10:24 Home Meds: Home Meds Escitalopram [Lexapro] 20 mg PO DAILY 11/05/13 [History] ARIPiprazole [Abilify] 1 tab PO DAILY 01/21/18 [History] buPROPion [Wellbutrin] 150 mg PO DAILY 02/01/18 [History] Naltrexone 50 mg PO DAILY 06/21/19 [History] levonorgestreL [Mirena] 1 each IMPLANT ASDIRECTED 07/07/19 [History] Penicillin V Potassium 500 mg PO TID 10 Days #30 tab 09/17/19 [Rx] Past Medical History - Past Health History Medical/Surgical History: Denies Medical/Surgical History HEENT History: Reports: None Other HEENT History: wears glasses/contacts Cardiovascular History: Reports: None Respiratory History: Reports: None Gastrointestinal History: Reports: Other (See Below) Other Gastrointestinal History: occasional heartburn Genitourinary History: Reports: None CANARY BREEDER History: Reports: None, Other (See Below) Other CANARY BREEDER History: Cyst on left fallopian tube Musculoskeletal History: Reports: None Neurological History: Reports: None Other Neuro History: states has motion sickness Psychiatric History: Reports: Addiction, Anxiety, Depression Endocrine/Metabolic History: Reports: None Hematologic History: Reports: None Immunologic History: Reports: None Oncologic (Cancer) History: Reports: None Dermatologic History: Reports: None - Infectious Disease History Infectious Disease History: Reports: Chicken Pox - Past Surgical History Head Surgeries/Procedures: Reports: None Cardiovascular Surgical History: Reports: None Respiratory Surgical History: Reports: None Female Surgical History: Reports: None Endocrine Surgical History: Reports: None Neurological Surgical History: Reports: None Musculoskeletal Surgical History: Reports: None Oncologic Surgical History: Reports: None Dermatological Surgical History: Reports: None Social & Family History - Family History Family Medical History: Noncontributory - Caffeine Use Caffeine Use: Reports: None ED ROS ENT - Review of Systems Review Of Systems: Comprehensive ROS is negative, except as noted in HPI. ED EXAM, ENT - Physical Exam Exam: See Below (see dictation) Course - Vital Signs Last Recorded V/S: Last Vital Signs Temp 98.3 F 09/17/19 10:25 Pulse 112 H 09/17/19 10:25 Resp 18 09/17/19 10:25 BP 138/84 09/17/19 10:25 Pulse Ox 97 09/17/19 10:25 - Orders/Labs/Meds Orders: Active Orders 24 hr Category Date Time Status CORONAVIRUS COVID-19 RAPID PCR [[facility]] Stat Lab 09/17/19 10:35 Received Departure - Departure Time of Disposition: 11:23 Disposition: Home, Self-Care 01 Condition: Good Clinical Impression: Strep pharyngitis - Discharge Information Referrals: PCP,Unknown [Ordering Only Provider] - Forms: ED Department Discharge Additional Instructions: The following information is given to patients seen in the emergency department who are being discharged to home. This information is to outline your options for follow-up care. We provide all patients seen in our emergency department with a follow-up referral. The need for follow-up, as well as the timing and circumstances, are variable depending upon the specifics of your emergency department visit. If you don't have a primary care physician on staff, we will provide you with a referral. We always advise you to contact your personal physician following an emergency department visit to inform them of the circumstance of the visit and for follow-up with them and/or the need for any referrals to a consulting specialist. The emergency department will also refer you to a specialist when appropriate. This referral assures that you have the opportunity for follow-up care with a specialist. All of these measure are taken in an effort to provide you with optimal care, which includes your follow-up. Under all circumstances we always encourage you to contact your private physician who remains a resource for coordinating your care. When calling for follow-up care, please make the office aware that this follow-up is from your recent emergency room visit. If for any reason you are refused follow-up, please contact the [facility] Emergency Department at and asked to speak to the emergency department charge nurse. [facility] [address] [place] [id number] [facility] [address] [place] [address] Take antibiotic as instructed Alternate tylenol and motrin as needed Follow up with primary care provider Return to ED as needed as discussed Sepsis Event Note - Focused Exam Vital Signs: Vital Signs Temp Pulse Resp BP Pulse Ox 09/17/19 10:25 98.3 F 112 H 18 138/84 97 Date Exam was Performed: 09/17/19 Time Exam was Performed: 11:16 - My Orders Last 24 Hours: My Active Orders 09/17/19 10:35 CORONAVIRUS COVID-19 RAPID PCR [[facility]] Stat - Assessment/Plan Last 24 Hours: My Active Orders 09/17/19 10:35 CORONAVIRUS COVID-19 RAPID PCR [[facility]] Stat
[2019-09-17 11:33] VITALS: BP 109/54; PULSE 90
== END 2019-09-17 11:32 | disposition home or self-care (01) ==
LOC: MW.ED 10:11
DX: J02.0 Streptococcal pharyngitis (principal); F41.9 Anxiety disorder, unspecified; F32.9 Major depressive disorder, single episode, unspecified; Z20.828 Contact with and (suspected) exposure to other viral communicable diseases; Z79.899 Other long term (current) drug therapy
CPT/HCPCS: 87880-QW; 99283; U0002

== ENCOUNTER 2020-09-30 19:22 | Emergency (ER) | payer MEDICAID ==
--- NOTE | 2020-09-30 20:18 | EDM.PDOC ---
ED HPI GENERAL MEDICAL PROBLEM - General Chief Complaint: Genitourinary Problem Stated Complaint: POSSIBLE BLADDER INFECTION Time Seen by Provider: 09/30/20 19:29 Source of Information: Reports: Patient History Limitations: Reports: No Limitations - History of Present Illness INITIAL COMMENTS - FREE TEXT/NARRATIVE: HISTORY AND PHYSICAL: History of present illness: Patient is a 40-year-old female who presents emergency room today with concern of urinary frequency and burning with urination. Patient states that starting last night and today she had a few episodes of blood in her urine and states that this has happened in the past with prior urinary tract infections. Patient denies any other symptoms or concerns. Patient denies fever, chills, chest pain, shortness of breath, or cough. Denies headache, neck stiff ness, change in vision, syncope, or near syncope. Denies nausea, vomiting, abdominal pain, diarrhea, constipation. Has not noted any blood in urine or stool. Patient has been eating and drinking appropriately. Review of systems: As per history of present illness and below otherwise all systems reviewed and negative. Past medical history: As per history of present illness and as reviewed below otherwise noncontributory. Surgical history: As per history of present illness and as reviewed below otherwise noncontributory. Social history: See social history for further information Family history: As per history of present illness and as reviewed below otherwise noncontributory. Physical exam: General: Patient is alert, oriented, and in no acute distress. Patient sitting comfortably on exam table. Vitals stable and reviewed by me. HEENT: Atraumatic, normocephalic, pupils equal and reactive bilaterally, negative for conjunctival pallor or scleral icterus, mucous membranes moist, TMs normal bilaterally, throat clear, neck supple, nontender, trachea midline. No drooling or trismus noted. No meningeal signs. No hot potato voice noted. Lungs: Clear to auscultation, breath sounds equal bilaterally, chest nontender. Heart: S1S2, regular rate and rhythm without overt murmur Abdomen: Soft, nondistended, nontender. Negative for masses or h epatosplenomegaly. Negative for costovertebral tenderness. Pelvis: Stable nontender. Genitourinary: Deferred. Rectal: Deferred. Skin: Intact, warm, dry. No lesions or rashes noted. Extremities: Atraumatic, negative for cords or calf pain. Neurovascular unremarkable. Neuro: Awake, alert, oriented. Cranial nerves II through XII unremarkable. Cerebellum unremarkable. Motor and sensory unremarkable throughout. Exam nonfocal. Notes: Signs and symptoms that were prompt return to the ED thoroughly discussed with patient. Discussed importance for follow-up with a primary care provider. Voices understanding and is agreeable to plan of care. Denies any further questions or concerns at this time. Diagnostics: UA, Uhcg, urine culture Therapeutics: None Prescription: Macrobid Impression: Dysuria Plan: 1. Take medication as prescribed. You can alternate ibuprofen and Tylenol as directed for pain and discomfort. 2. Follow-up with a primary care provider as discussed. Return to the ED as n eeded and as discussed. Definitive disposition and diagnosis as appropriate pending reevaluation and review of above. Bladder Pain Score (Numeric/FACES): 4 - Related Data Allergies Allergy/AdvReac Type Severity Reaction Status Date / Time No Known Allergies Allergy Verified 09/30/20 19:53 Home Meds: Home Meds Escitalopram [Lexapro] 20 mg PO DAILY 11/05/13 [History] ARIPiprazole [Abilify] 1 tab PO DAILY 01/21/18 [History] buPROPion [Wellbutrin] 150 mg PO DAILY 02/01/18 [History] levonorgestreL [Mirena] 1 each IMPLANT ASDIRECTED 07/07/19 [History] Nitrofurantoin Monohyd/M-Cryst [Macrobid 100 mg Capsule] 100 mg PO BID 5 Days #10 capsule 09/30/20 [Rx] Past Medical History - Past Health History Medical/Surgical History: Denies Medical/Surgical History HEENT History: Reports: None Other HEENT History: wears glasses/contacts Cardiovascular History: Reports: None Respiratory History: Reports: None Gastrointestinal History: Reports: Other (See Below) Other Gastrointestinal History: occasional heartburn Genitourinary History: Reports: Other (See Below) Other Genitourinary History: frequent uti's HOUSE REGISTRY RN History: Reports: Other (See Below) Other HOUSE REGISTRY RN History: Cyst on left fallopian tube Musculoskeletal History: Reports: None Neurological History: Reports: Other (See Below) Other Neuro History: states has motion sickness Psychiatric History: Reports: Addiction, Anxiety, Depression Endocrine/Metabolic History: Reports: None Hematologic History: Reports: None Immunologic History: Reports: None Oncologic (Cancer) History: Reports: None Dermatologic History: Reports: None - Infectious Disease History Infectious Disease History: Reports: Chicken Pox - Past Surgical History Head Surgeries/Procedures: Reports: None HEENT Surgical History: Reports: None Cardiovascular Surgical History: Reports: None Respiratory Surgical History: Reports: None GI Surgical History: Reports: None Female Surgical History: Reports: None Endocrine Surgical History: Reports: None Neurological Surgical History: Reports: None Musculoskeletal Surgical History: Reports: None Oncologic Surgical History: Reports: None Dermatological Surgical History: Reports: None Social & Family History - Family History Family Medical History: No Pertinent Family History - Caffeine Use Caffeine Use: Reports: None - Recreational Drug Use Recreational Drug Use: Yes Drug Use in Last 12 Months: Yes Recreational Drug Type: Reports: Marijuana/Hashish ED ROS GENERAL - Review of Systems Review Of Systems: Comprehensive ROS is negative, except as noted in HPI. ED EXAM, GENERAL - Physical Exam Exam: See Below (see dictation) Course - Vital Signs Last Recorded V/S: Last Vital Signs Temp 98.0 F 09/30/20 19:50 Pulse 72 09/30/20 20:25 Resp 18 09/30/20 20:25 BP 110/60 09/30/20 20:25 Pulse Ox 97 09/30/20 20:25 - Orders/Labs/Meds Orders: Active Orders 24 hr Category Date Time Status CULTURE URINE [MREF] Stat Lab 09/30/20 20:00 Received Labs: Laboratory Tests 09/30/20 09/30/20 Range/Units 20:00 20:00 Urine Color YELLOW Urine Appearance CLEAR Urine pH 5.5 (5.0-8.0) Ur Specific [place] 1.025 (1.001-1.035) Urine Protein NEGATIVE (NEGATIVE) mg/dL Urine Glucose (UA) NEGATIVE (NEGATIVE) mg/dL Urine Ketones TRACE H (NEGATIVE) mg/dL Urine Occult Blood NEGATIVE (NEGATIVE) Urine Nitrite NEGATIVE (NEGATIVE) Urine Bilirubin NEGATIVE (NEGATIVE) Urine Urobilinogen 0.2 (<2.0) EU/dL Ur Leukocyte Esterase NEGATIVE (NEGATIVE) Urine HCG, Qual NEGATIVE (NEGATIVE) Departure - Departure Time of Disposition: 20:17 Disposition: Home, Self-Care 01 Clinical Impression: Dysuria - Discharge Information Prescriptions: Nitrofurantoin Monohyd/M-Cryst [Macrobid 100 mg Capsule] 100 mg PO BID 5 Days #10 capsule Instructions: Dysuria Referrals: Shonda Bowens DO [Primary Care Provider] - Forms: ED Department Discharge Additional Instructions: The following information is given to patients seen in the emergency department who are being discharged to home. This information is to outline your options for follow-up care. We provide all patients seen in our emergency department with a follow-up referral. The need for follow-up, as well as the timing and circumstances, are variable depending upon the specifics of your emergency department visit. If you don't have a primary care physician on staff, we will provide you with a referral. We always advise you to contact your personal physician following an emergency department visit to inform them of the circumstance of the visit and for follow-up with them and/or the need for any referrals to a consulting specialist. The emergency department will also refer you to a specialist when appropriate. This referral assures that you have the opportunity for follow-up care with a specialist. All of these measure are taken in an effort to provide you with optimal care, which includes your follow-up. Under all circumstances we always encourage you to contact your private physician who remains a resource for coordinating your care. When calling for follow-up care, please make the office aware that this follow-up is from your recent emergency room visit. If for any reason you are refused follow-up, please contact the [facility] Emergency Department at and asked to speak to the emergency department charge nurse. [facility] [address] [place] [id number] [id number] 1. Take medication as prescribed. You can alternate ibuprofen and Tylenol as directed for pain and discomfort. 2. Follow-up with a primary care provider as discussed. Return to the ED as needed and as discussed. Sepsis Event Note (ED) - Evaluation Sepsis Screening Result: No Definite Risk - My Orders Last 24 Hours: My Active Orders 09/30/20 20:00 CULTURE URINE [MREF] Stat - Assessment/Plan Last 24 Hours: My Active Orders 09/30/20 20:00 CULTURE URINE [MREF] Stat
[2020-09-30 20:29] VITALS: BP 110/60; PULSE 72
== END 2020-09-30 20:27 | disposition home or self-care (01) ==
LOC: MW.ED 19:22
DX: R30.0 Dysuria (principal); Z79.899 Other long term (current) drug therapy
CPT/HCPCS: 81003; 81025; 87086; 99283

== ENCOUNTER 2020-11-30 12:47 | Emergency (ER) | payer OTHER, MEDICAID ==
[2020-11-30] MEDS ORDERED: Diphtheria,Pertussis(Acell),Tetanus Vaccine 0.5 ML Syringe IM ONE ×2 (14:31→15:00)
--- NOTE | 2020-11-30 14:31 | EDM.PDOC ---
ED HPI GENERAL MEDICAL PROBLEM - General Chief Complaint: Laceration Stated Complaint: CUT LEFT POINTER FINGER Time Seen by Provider: 11/30/20 14:30 Source of Information: Reports: Patient History Limitations: Reports: No Limitations - History of Present Illness INITIAL COMMENTS - FREE TEXT/NARRATIVE: HISTORY AND PHYSICAL: History of present illness: Patient is a 40-year-old female who presents to the emergency room with complaints of a laceration to her left index finger. She states she was chopping onions while at work when the knife slipped resulting in an avulsion injury. She is unsure of her last tetanus update. She offers no other bodily injury or harm. Offers no systemic complaints. Review of systems: As per history of present illness and below otherwise all systems reviewed and negative. Past medical history: As per history of present illness and as reviewed below otherwise noncontributory. Surgical history: As per history of present illness and as reviewed below otherwise noncontributory. Social history: See social history for further information Family history: As per history of present illness and as reviewed below otherwise noncontribut ory. Physical exam: General: Well developed and well nourished. Alert and orientated x 3. Nontoxic in appearance and in no acute distress. Vital signs are stable and have been reviewed by me. Nursing notes were reviewed. HEENT: Atraumatic, normocephalic, pupils equal and reactive bilaterally, negative for conjunctival pallor or scleral icterus, mucous membranes moist, TMs normal bilaterally, throat clear, neck supple, nontender, trachea midline. No drooling or trismus noted. No meningeal signs. No hot potato voice noted. Lungs: Clear to auscultation bilaterally. No wheezes, rales, or rhonchi. Chest nontender. Normal work of breathing, no accessory muscles used. Heart: S1S2, regular rate and rhythm without overt murmur, gallops, or rubs. No JVD. No peripheral edema Abdomen: Soft, nondistended, nontender. Normoactive bowel sounds. Negative for masses or costovertebral tenderness. Pelvis: Stable nontender. Genitourinary/Rectal: Deferred. Skin: 0.5cm avulsion injury of her left index finger. This does not involve the nailbed. Remaining skin is intact, warm, dry. No lesions or rashes noted. Hematologic: No petechiae or purpra. Mucosa appropriate color and normal nail bed color and refill. Extremities: See skin for details, moves all extremities per self without difficulty or deficits, negative for cords or calf pain. Neurovascular unremarkable. Neuro: Awake, alert, oriented. Cranial nerves II through XII unremarkable. Cerebellum unremarkable. Motor and sensory unremarkable throughout. Exam nonfocal. Psychiatric: Mood and affect are appropriate. Normal thought process. Answering questions appropriately. Notes: *This patient was seen and evaluated during the 2019 SARS-CoV-2 novel coronavirus pandemic period. Community viral transmission is ongoing at time of this encounter and the emergency department is operating under pandemic response procedures. Patient is a 40-year-old female who presents to the emergency room with complaints of an avulsion injury to her left index finger. This does not involve the nailbed. It is approximately 0.5 cm across and cannot be repaired with suture. Area was thoroughly cleansed with chlorhexidine and wound wash. Bleeding is controlled. We will do a Vaseline tube gauze dressing. Her tetanus has been updated. At this time there is no need for antibiotics but I will have her watch the site closely. I have talked with the patient about today's findings, in addition to providing specific details for plan of care. Reassessment at the time of disposition demonstrates that the patient is in no acute distress. The patient is stable for discharge, counseling was provided and we discussed in great detail signs and symptoms that would prompt them to return to the Emergency Department. Medication, follow up and supportive care measures were reviewed and discussed. Voices understanding and is agreeable to plan of care. Denies any further questions or concerns at this time. Diagnostics: None Therapeutics: Tdap, Vaseline/tube gauze dressing, tramadol Prescription: Tramadol avulsion injury Impression: Avulsion injury, finger Plan: 1. You were evaluated today on an emergent basis. The type of injury you have is not suturable and will require to be covered until the skin is healed. Keep the skin clean and dry. Continue to monitor for signs of infection. I would leave the dressing we placed here in the emergency room on for the next 24 to 48 hours. 2. You can alternate Tylenol and ibuprofen as needed for pain and fever management. 3. We encourage you to follow up with your primary care provider and/or recommended specialist in the next few days for re-evaluation and further care/management. 4. If your symptoms should worsen, new symptoms develop or any of the signs and symptoms we discussed should arise please return to the emergency room or call 911 (if needed). Definitive disposition and diagnosis as appropriate pending reevaluation and review of above. L index finger Pain Score (Numeric/FACES): 7 - Related Data Allergies Allergy/AdvReac Type Severity Reaction Status Date / Time No Known Allergies Allergy Verified 11/30/20 14:17 Home Meds: Home Meds Escitalopram [Lexapro] 20 mg PO DAILY 11/05/13 [History] ARIPiprazole [Abilify] 1 tab PO DAILY 01/21/18 [History] buPROPion [Wellbutrin] 150 mg PO DAILY 02/01/18 [History] levonorgestreL [Mirena] 1 each IMPLANT ASDIRECTED 07/07/19 [History] Past Medical History - Past Health History Medical/Surgical History: Denies Medical/Surgical History HEENT History: Reports: Other (See Below) Other HEENT History: wears glasses/contacts Cardiovascular History: Reports: None Respiratory History: Reports: None Gastrointestinal History: Reports: Other (See Below) Other Gastrointestinal History: occasional heartburn Genitourinary History: Reports: UTI, Recurrent Other Genitourinary History: frequent uti's CLINICAL RESOURCE COORDINATOR History: Reports: , Other (See Below) Other CLINICAL RESOURCE COORDINATOR History: Cyst on left fallopian tube Musculoskeletal History: Reports: None Neurological History: Reports: Other (See Below) Other Neuro History: states has motion sickness Psychiatric History: Reports: Addiction, Anxiety, Depression Endocrine/Metabolic History: Reports: None Hematologic History: Reports: None Immunologic History: Reports: None Oncologic (Cancer) History: Reports: None Dermatologic History: Reports: None - Infectious Disease History Infectious Disease History: Reports: Chicken Pox - Past Surgical History Head Surgeries/Procedures: Reports: None HEENT Surgical History: Reports: None Cardiovascular Surgical History: Reports: None Respiratory Surgical History: Reports: None GI Surgical History: Reports: None Female Surgical History: Reports: None Endocrine Surgical History: Reports: None Neurological Surgical History: Reports: None Musculoskeletal Surgical History: Reports: None Oncologic Surgical History: Reports: None Dermatological Surgical History: Reports: None Social & Family History - Family History Family Medical History: No Pertinent Family History - Tobacco Use Tobacco Use Status *Q: Current Every Day Tobacco User Years of Tobacco use: 1 Packs/Tins Daily: 0.3 - Caffeine Use Caffeine Use: Reports: Coffee - Recreational Drug Use Recreational Drug Use: Yes Drug Use in Last 12 Months: Yes Recreational Drug Type: Reports: Marijuana/Hashish ED ROS GENERAL - Review of Systems Review Of Systems: Comprehensive ROS is negative, except as noted in HPI. ED EXAM, SKIN/RASH Exam: See Below (See skin for details) Course - Vital Signs Last Recorded V/S: Last Vital Signs Temp 96.4 F L 11/30/20 14:18 Pulse 89 11/30/20 14:18 Resp 17 11/30/20 14:18 BP 129/83 11/30/20 14:18 Pulse Ox 98 11/30/20 14:18 - Orders/Labs/Meds Orders: Active Orders 24 hr Category Date Time Status Communication Order [RC] STAT Care 11/30/20 14:31 Active Vaccines to be Administered [RC] PER UNIT ROUTINE Care 11/30/20 14:31 Active Meds: Medications Discontinued Medications Generic Name Dose Route Start Last Admin Trade Name Lloyd PRN Reason Stop Dose Admin Diphtheria/Tetanus/Acell Pertussis 0.5 ml 11/30/20 14:31 Diphtheria,Pertussis(Acell),Tetanus Vaccine 0.5 Ml Syringe IM 11/30/20 14:32 .ONCE ONE Tramadol HCl 50 mg 11/30/20 14:32 Tramadol 50 Mg Tab PO 11/30/20 14:33 ONETIME ONE Departure - Departure Time of Disposition: 14:42 Disposition: Home, Self-Care 01 Clinical Impression: Avulsion of skin of finger Qualifiers: Encounter type: initial encounter Qualified Code(s): S61.209A - Unspecified open wound of unspecified finger without damage to nail, initial encounter - Discharge Information Instructions: Laceration Care, Adult, [id number] Referrals: Shonda Bowens DO [Primary Care Provider] - Forms: ED Department Discharge Additional Instructions: The following information is given to patients seen in the emergency department who are being discharged to home. This information is to outline your options for follow-up care. We provide all patients seen in our emergency department with a follow-up referral. The need for follow-up, as well as the timing and circumstances, are variable depending upon the specifics of your emergency department visit. If you don't have a primary care physician on staff, we will provide you with a referral. We always advise you to contact your personal physician following an emergency department visit to inform them of the circumstance of the visit and for follow-up with them and/or the need for any referrals to a consulting specialist. The emergency department will also refer you to a specialist when appropriate. This referral assures that you have the opportunity for follow-up care with a specialist. All of these measure are taken in an effort to provide you with optimal care, which includes your follow-up. Under all circumstances we always encourage you to contact your private physician who remains a resource for coordinating your care. When calling for follow-up care, please make the office aware that this follow-up is from your recent emergency room visit. If for any reason you are refused follow-up, please contact the [facility] Emergency Department at and asked to speak to the emergency department charge nurse. [facility] [address] [place] [id number] [id number] Thank you for choosing the [facility] emergency department in [place] for your medical needs today. It was a pleasure caring for you. Today you were seen in the emergency department for skin avulsion. 1. You were evaluated today on an emergent basis. The type of injury you have is not suturable and will require to be covered until the skin is healed. Keep the skin clean and dry. Continue to monitor for signs of infection. I would leave the dressing we placed here in the emergency room on for the next 24 to 48 hours. 2. You can alternate Tylenol and ibuprofen as needed for pain and fever management. 3. We encourage you to follow up with your primary care provider and/or recommended specialist in the next few days for re-evaluation and further care/management. 4. If your symptoms should worsen, new symptoms develop or any of the signs and symptoms we discussed should arise please return to the emergency room or call 911 (if needed). Sepsis Event Note (ED) - Evaluation Sepsis Screening Result: No Definite Risk - Focused Exam Vital Signs: Vital Signs Temp Pulse Resp BP Pulse Ox 11/30/20 14:18 96.4 F L 89 17 129/83 98 - My Orders Last 24 Hours: My Active Orders 11/30/20 14:31 Communication Order [RC] STAT Vaccines to be Administered [RC] PER UNIT ROUTINE - Assessment/Plan Last 24 Hours: My Active Orders 11/30/20 14:31 Communication Order [RC] STAT Vaccines to be Administered [RC] PER UNIT ROUTINE
[2020-11-30] MEDS ORDERED: traMADol 50 MG Tab PO ONE (14:32)
[2020-11-30] MEDS ORDERED: Diphtheria,Pertussis(Acell),Tetanus Vaccine 0.5 ML Syringe ONE (14:57)
[2020-11-30 15:26] VITALS: BP 110/71; PULSE 96
== END 2020-11-30 15:28 | disposition home or self-care (01) ==
LOC: MW.ED 12:47
DX: S61.201A Unspecified open wound of left index finger without damage to nail, initial encounter (principal); Z72.0 Tobacco use; Z23 Encounter for immunization; W26.0XXA Contact with knife, initial encounter; Y99.0 Civilian activity done for income or pay
CPT/HCPCS: 90471; 90715; 99282; A9270

== ENCOUNTER 2022-04-12 17:01 | Emergency (ER) | payer MEDICAID ==
[2022-04-12] MEDS ORDERED: STERILE IM ONE (17:07)
[2022-04-12] MEDS ORDERED: OLANZAPINE IM ONE (17:07)
[2022-04-12] MEDS ORDERED: WATER FOR INJECTION IM ONE (17:07)
[2022-04-12 19:43] LABS: ACETAMINOPHEN <2.0 ug/mL; BLOOD UREA NITROGEN,BUN 17 mg/dL (7.0-18.0); CARBON DIOXIDE,CO2 27.5 mmol/L (21.0-32.0); CHLORIDE,CL 104 mmol/L (98-107); GLUCOSE RANDOM 89 mg/dL (74-106); LIPASE 127 U/L (73-393); POTASSIUM,K 3.7 mmol/L (3.5-5.1); SODIUM,NA 140 mmol/L (136-145)
[2022-04-12 19:44] LABS: ESTIMATED GFR 112 mL/min (>60)
[2022-04-12 22:29] VITALS: BP 125/65; PULSE 84
== END 2022-04-12 22:28 ==
LOC: MW.ED 17:01
DX: R45.851 Suicidal ideations (principal); Z20.822 Contact with and (suspected) exposure to COVID-19
CPT/HCPCS: 36415; 80053; 80143; 80179; 80305; 80307; 81003; 81025; 83690; 83735; 84443; 84484; 85025; 87635; 96372; 99284; J3490; U0002

== ENCOUNTER 2022-09-01 07:43 | Emergency (ER) | payer SELFPAY ==
[2022-09-01 08:08] VITALS: BP 105/66; PULSE 82
== END 2022-09-01 08:45 | disposition home or self-care (01) ==
LOC: MW.ED 07:43
DX: F15.23 Other stimulant dependence with withdrawal (principal)
CPT/HCPCS: 99283; 99284

== ENCOUNTER 2022-09-16 16:40 | Emergency (ER) | payer SELFPAY ==
[2022-09-16] MEDS ORDERED: Sodium Chloride 0.9% 2.5 ML Syringe FLUSH PRN (17:02)
[2022-09-16] MEDS ORDERED: Sodium Chloride 0.9% 10 ML Syringe FLUSH PRN (17:02)
[2022-09-16] MEDS ORDERED: LORazepam 2 MG/ML SDV IVPUSH STA (17:03)
[2022-09-16 17:37] LABS: BASOPHILS PERCENT AUTO 0.2 % (0.0-1.5); EOSINOPHILS ABSOLUTE AUTO 0.1 K/uL (0.0-0.7); EOSINOPHILS PERCENT AUTO 0.8 % (0.0-7.0); HEMATOCRIT 42.1 % (36.0-46.0); HEMOGLOBIN 14.6 g/dL (12.0-16.0); LYMPHOCYTES ABSOLUTE AUTO 2.2 K/uL (0.6-2.4); LYMPHOCYTES PERCENT AUTO 18.1 % (16.0-40.0); MEAN CORPUSCULAR HEMOGLOBIN 30.6 pg (27.0-32.0); MEAN CORPUSCULAR HGB CONC 34.7 g/dL (31.0-37.0); MEAN CORPUSCULAR VOLUME 88.3 fL (80.0-98.0); MONOCYTES ABSOLUTE AUTO 0.4 K/uL (0.0-0.8); MONOCYTES PERCENT AUTO 3.2 % (0.0-15.0); NEUTROPHILS ABSOLUTE AUTO 9.4 K/uL (1.4-5.7); NEUTROPHILS PERCENT AUTO 77.7 % (48.0-80.0); PLATELET COUNT,PLT 324 K/uL (150-400); RED BLOOD CELL COUNT 4.77 M/uL (4.30-5.90)
[2022-09-16 17:45] LABS: COLOR,URINE YELLOW; GLUCOSE,URINE NEGATIVE (NEGATIVE); KETONES,URINE >=80 mg/dL (NEGATIVE); LEUKOCYTE ESTERASE,URINE NEGATIVE (NEGATIVE); NITRITE,URINE NEGATIVE (NEGATIVE); OCCULT BLOOD,URINE TRACE-INTACT (NEGATIVE); PROTEIN,URINE NEGATIVE (NEGATIVE); UROBILINOGEN,URINE 0.2 EU/dL (<2.0)
[2022-09-16 17:46] LABS: APPEARANCE,URINE SLT CLOUDY; BILIRUBIN,URINE SMALL (NEGATIVE)
[2022-09-16] MEDS ORDERED: Sodium Chloride 0.9% 1,000 ML IV STA ×2 (17:48→18:48)
[2022-09-16 17:55] LABS: AMPHETAMINES SCREEN, URINE PRESUMPTIVE POSITIVE (CUTOFF=500); BARBITURATE SCREEN,URINE NEGATIVE (CUTOFF=200); BENZODIAZEPINES SCREEN,URINE NEGATIVE (CUTOFF=150); BUPRENORPHINE SCREEN,URINE NEGATIVE (CUTOFF=10); METHADONE SCREEN, URINE NEGATIVE (CUTOFF=200); METHAMPHETAMINES SCREEN, URINE PRESUMPTIVE POSITIVE (CUTOFF=500); OXYCODONE SCREEN,URINE NEGATIVE (CUT0FF=100); PCP SCREEN,URINE NEGATIVE (CUTOFF=25); PROPOXYPHENE SCREEN,URINE NEGATIVE (CUTOFF=300); THC SCREEN,URINE 20 NG/ML PRESUMPTIVE POSITIVE (CUTOFF=50)
[2022-09-16 17:57] LABS: BACTERIA,URINE FEW (NEGATIVE); EPITHELIAL CELLS,URINE MODERATE (NONE-FEW); RBC,URINE 0-2 (0-2/HPF); WBC,URINE 0-3 (0-5/HPF)
[2022-09-16 18:42] LABS: A/G RATIO 0.9 (0.9-1.6); ACETAMINOPHEN <2.0 ug/mL; ALANINE AMINOTRANSFERASE,ALT 22 IU/L (14-63); ALBUMIN 3.7 g/dL (3.4-5.0); ALKALINE PHOSPHATASE 118 U/L (46-116); ASPARTATE AMNIOTRANSFERASE,AST 8 IU/L (15-37); BILIRUBIN TOTAL 0.6 mg/dL (0.2-1.0); BLOOD UREA NITROGEN,BUN 19 mg/dL (7.0-18.0); CALCIUM 8.9 mg/dL (8.5-10.1); CARBON DIOXIDE,CO2 21.7 mmol/L (21.0-32.0); CHLORIDE,CL 98 mmol/L (98-107); CREATININE 0.9 mg/dL (0.6-1.0); ETHANOL BLOOD MEDICAL <3 mg/dL; GLUCOSE RANDOM 145 mg/dL (74-106); MAGNESIUM 1.9 mg/dL (1.8-2.4); POTASSIUM,K 3.1 mmol/L (3.5-5.1); PROTEIN TOTAL,TP 7.7 g/dL (6.4-8.2); SALICYLATE 2.3 mg/dL (0.0-20.0); SODIUM,NA 134 mmol/L (136-145); T3 FREE 2.36 pg/mL (2.18-3.98); T4 FREE 1.01 ng/dL (0.76-1.46); TSH ULTRASENSITIVE 0.62 uIU/mL (0.36-3.74)
[2022-09-16 18:44] LABS: ESTIMATED GFR 83 mL/min (>60)
[2022-09-16] MEDS ORDERED: Potassium Chloride 20 MEQ Tab.ER PO STA (18:47)
[2022-09-17] MEDS ORDERED: LORazepam 2 MG/ML SDV IVPUSH STA (11:33)
[2022-09-17 12:08] VITALS: BP 112/59; PULSE 89
== END 2022-09-17 12:09 ==
LOC: MW.ED 16:40
DX: R45.851 Suicidal ideations (principal); F19.10 Other psychoactive substance abuse, uncomplicated; E87.6 Hypokalemia; Z20.822 Contact with and (suspected) exposure to COVID-19
CPT/HCPCS: 36415; 80053; 80143; 80179; 80305; 80307; 81001; 81025; 83735; 84439; 84443; 84481; 85025; 87635; 93005; 96361; 96374; 96376; 99285; A9270; J2060; J3490; J7030; 93010; U0002

== ENCOUNTER 2023-06-05 08:13 | Emergency (ER) | payer SELFPAY ==
[2023-06-05 08:22] VITALS: BP 146/82; PULSE 70
[2023-06-05] MEDS: Ondansetron 4 MG Tab.DIS PO ONE (08:35)
[2023-06-05] MEDS: Ibuprofen 600 MG Tab PO ONE (08:35)
[2023-06-05] MEDS: Acetaminophen/HYDROcodone 325-5 MG Tab PO ONE (08:36)
== END 2023-06-05 10:16 | disposition left against medical advice (07) ==
LOC: MW.ED 08:13
DX: M54.2 Cervicalgia (principal); M54.9 Dorsalgia, unspecified; Z79.899 Other long term (current) drug therapy
CPT/HCPCS: 99283; A9270

== ENCOUNTER 2023-08-03 08:53 | Emergency (ER) | payer SELFPAY ==
[2023-08-03 09:16] VITALS: BP 125/77; PULSE 74
[2023-08-03] MEDS: Acetaminophen 325 MG Tab PO ONE (09:21)
[2023-08-03] MEDS: Ibuprofen 800 MG Tab PO ONE (09:21)
[2023-08-03] MEDS: traMADol 50 MG Tab PO ONE (09:22)
== END 2023-08-03 09:51 | disposition home or self-care (01) ==
LOC: MW.ED 08:53
DX: S03.42XA Sprain of jaw, left side, initial encounter (principal); M26.602 Left temporomandibular joint disorder, unspecified; Z75.8 Other problems related to medical facilities and other health care; Z79.899 Other long term (current) drug therapy; Z86.19 Personal history of other infectious and parasitic diseases; X58.XXXA Exposure to other specified factors, initial encounter
CPT/HCPCS: 99283; A9270

== ENCOUNTER 2023-09-10 17:45 | Emergency (ER) | payer SELFPAY ==
[2023-09-10 17:55] VITALS: BP 124/68; PULSE 99
[2023-09-10] MEDS: Alum Hydro/Mag Hydro/Simeth XS 15 ML, Lidocaine 2% 5 ML PO STA (18:14)
== END 2023-09-10 18:20 | disposition home or self-care (01) ==
LOC: MW.ED 17:45
DX: U07.0 Vaping-related disorder (principal); Z76.0 Encounter for issue of repeat prescription; J45.909 Unspecified asthma, uncomplicated; F17.210 Nicotine dependence, cigarettes, uncomplicated; Z75.8 Other problems related to medical facilities and other health care; Z79.51 Long term (current) use of inhaled steroids; Z79.899 Other long term (current) drug therapy
CPT/HCPCS: 99284; A9270; 99283

== ENCOUNTER 2024-02-08 13:37 | Emergency (ER) | payer SELFPAY ==
[2024-02-08 13:45] VITALS: BP 105/76; PULSE 97
[2024-02-08] MEDS ORDERED: Sodium Chloride 0.9% 2.5 ML Syringe FLUSH PRN (14:40)
[2024-02-08] MEDS ORDERED: Sodium Chloride 0.9% 10 ML Syringe FLUSH PRN (14:40)
[2024-02-08] MEDS: Sodium Chloride 0.9% 1,000 ML IV ONE (15:35)
[2024-02-08 15:39] LABS: BASOPHILS ABSOLUTE AUTO 0.03 K/uL (0.00-0.20); BASOPHILS PERCENT AUTO 0.4 % (0.0-1.0); EOSINOPHILS ABSOLUTE AUTO 0.06 K/uL (0.00-0.45); EOSINOPHILS PERCENT AUTO 0.8 % (0.0-6.0); HEMATOCRIT 44.1 % (37.0-47.0); HEMOGLOBIN 15.5 g/dL (12.0-16.0); IMMATURE GRAN ABSOLUTE AUTO 0.02 K/uL (0.00-0.05); IMMATURE GRAN PERCENT AUTO 0.3 % (0.0-0.4); LYMPHOCYTES ABSOLUTE AUTO 1.73 K/uL (1.00-4.80); LYMPHOCYTES PERCENT AUTO 24.2 % (24.0-44.0); MEAN CORPUSCULAR HEMOGLOBIN 30.3 pg (28.0-32.0); MEAN CORPUSCULAR HGB CONC 35.1 g/dL (32.0-36.0); MEAN CORPUSCULAR VOLUME 86.3 fL (83.0-99.0); MEAN PLATELET VOLUME 9.3 fL (9.4-12.3); MONOCYTES ABSOLUTE AUTO 0.61 K/uL (0.00-0.80); MONOCYTES PERCENT AUTO 8.5 % (0.0-8.0); NEUTROPHILS ABSOLUTE AUTO 4.69 K/uL (1.80-7.70); NEUTROPHILS PERCENT AUTO 65.8 % (41.0-71.0); PLATELET COUNT,PLT 384 K/uL (150-400); RED BLOOD CELL COUNT 5.11 M/uL (4.10-5.30); WHITE BLOOD CELL COUNT,WBC 7.14 K/uL (3.9-11.3)
[2024-02-08 15:56] LABS: ALBUMIN 3.5 g/dL (3.4-5.0); BILIRUBIN TOTAL 0.4 mg/dL (0.2-1.0); CALCIUM 9.2 mg/dL (8.5-10.1); CARBON DIOXIDE,CO2 27.7 mmol/L (21.0-32.0); CREATININE 0.7 mg/dL (0.6-1.0); EST CRCL DRUG DOSING (CG) 75.97 mL/min; POTASSIUM,K 3.9 mmol/L (3.5-5.1)
== END 2024-02-08 17:25 | disposition home or self-care (01) ==
LOC: MW.ED 13:37
DX: F15.13 Other stimulant abuse with withdrawal (principal); Z79.899 Other long term (current) drug therapy; Z75.8 Other problems related to medical facilities and other health care
CPT/HCPCS: 36415; 80053; 82550; 83690; 85025; 96360; 99284; J7030; 99282

== ENCOUNTER 2024-06-23 23:11 | Emergency (ER) | payer MEDICAID ==
[2024-06-23 23:27] VITALS: BP 113/58; PULSE 85
== END 2024-06-24 01:02 ==
LOC: MW.ED 23:11
DX: Z02.89 Encounter for other administrative examinations (principal); J45.909 Unspecified asthma, uncomplicated; Z79.899 Other long term (current) drug therapy
CPT/HCPCS: 99282; 99283

== ENCOUNTER 2024-06-24 15:23 | Emergency (ER) | payer MEDICAID ==
[2024-06-24] MEDS ORDERED: Sodium Chloride 0.9% 20 ML SDV IV PRN (16:35)
[2024-06-24] MEDS ORDERED: Sodium Chloride 0.9% 10 ML Syringe FLUSH PRN (16:35)
[2024-06-24] MEDS ORDERED: Sodium Chloride 0.9% 2.5 ML Syringe FLUSH PRN (16:35)
[2024-06-24 17:07] LABS: BASOPHILS ABSOLUTE AUTO 0.04 K/uL (0.00-0.20); BASOPHILS PERCENT AUTO 0.6 % (0.0-1.0); EOSINOPHILS ABSOLUTE AUTO 0.06 K/uL (0.00-0.45); EOSINOPHILS PERCENT AUTO 0.8 % (0.0-6.0); HEMATOCRIT 38.2 % (37.0-47.0); IMMATURE GRAN ABSOLUTE AUTO 0.02 K/uL (0.00-0.05); IMMATURE GRAN PERCENT AUTO 0.3 % (0.0-0.4); LYMPHOCYTES ABSOLUTE AUTO 2.43 K/uL (1.00-4.80); LYMPHOCYTES PERCENT AUTO 33.9 % (24.0-44.0); MEAN CORPUSCULAR HEMOGLOBIN 30.4 pg (28.0-32.0); MEAN CORPUSCULAR VOLUME 89.3 fL (83.0-99.0); MEAN PLATELET VOLUME 9.5 fL (9.4-12.3); NEUTROPHILS ABSOLUTE AUTO 4.12 K/uL (1.80-7.70); NEUTROPHILS PERCENT AUTO 57.4 % (41.0-71.0); PLATELET COUNT,PLT 412 K/uL (150-400); RED BLOOD CELL COUNT 4.28 M/uL (4.10-5.30); WHITE BLOOD CELL COUNT,WBC 7.17 K/uL (3.9-11.3)
[2024-06-24 17:16] VITALS: BP 117/59; PULSE 73
[2024-06-24 17:47] LABS: ACETAMINOPHEN <2.0 ug/mL; ALANINE AMINOTRANSFERASE,ALT 21 IU/L (14-63); ALBUMIN 3.5 g/dL (3.4-5.0); ALKALINE PHOSPHATASE 80 U/L (46-116); ASPARTATE AMNIOTRANSFERASE,AST 8 IU/L (15-37); BILIRUBIN TOTAL 0.4 mg/dL (0.2-1.0); BLOOD UREA NITROGEN,BUN 22 mg/dL (7.0-18.0); CARBON DIOXIDE,CO2 23.9 mmol/L (21.0-32.0); CHLORIDE,CL 105 mmol/L (98-107); CREATININE 0.8 mg/dL (0.6-1.0); ESTIMATED GFR 94 mL/min (>60); GLUCOSE RANDOM 80 mg/dL (74-106); SALICYLATE 4.3 mg/dL (0.0-20.0); SODIUM,NA 141 mmol/L (136-145); TSH ULTRASENSITIVE 0.87 uIU/mL (0.36-3.74)
[2024-06-24 18:01] LABS: COLOR,URINE YELLOW; GLUCOSE,URINE NEGATIVE (NEGATIVE); KETONES,URINE >=80 mg/dL (NEGATIVE); LEUKOCYTE ESTERASE,URINE NEGATIVE (NEGATIVE); NITRITE,URINE NEGATIVE (NEGATIVE); OCCULT BLOOD,URINE NEGATIVE (NEGATIVE); PH,URINE 5.5 (5.0-8.0); PROTEIN,URINE NEGATIVE (NEGATIVE); UROBILINOGEN,URINE 0.2 EU/dL (<2.0)
[2024-06-24 18:07] LABS: APPEARANCE,URINE HAZY; BILIRUBIN,URINE SMALL (NEGATIVE)
[2024-06-24 18:12] LABS: AMPHETAMINES SCREEN, URINE PRESUMPTIVE POSITIVE (CUTOFF=500); BARBITURATE SCREEN,URINE NEGATIVE (CUTOFF=200); BENZODIAZEPINES SCREEN,URINE NEGATIVE (CUTOFF=150); BUPRENORPHINE SCREEN,URINE NEGATIVE (CUTOFF=10); METHADONE SCREEN, URINE NEGATIVE (CUTOFF=200); METHAMPHETAMINES SCREEN, URINE PRESUMPTIVE POSITIVE (CUTOFF=500); OXYCODONE SCREEN,URINE NEGATIVE (CUT0FF=100); PCP SCREEN,URINE NEGATIVE (CUTOFF=25); THC SCREEN,URINE 20 NG/ML PRESUMPTIVE POSITIVE (CUTOFF=50)
== END 2024-06-24 20:50 ==
LOC: MW.ED 15:23
DX: R45.851 Suicidal ideations (principal); F17.210 Nicotine dependence, cigarettes, uncomplicated; Z79.899 Other long term (current) drug therapy
CPT/HCPCS: 80053; 80143; 80179; 80305; 81003; 84443; 84703; 85025; 87428-QW; 93005; 99285